=== PATIENT | female | born 1990 | race Caucasian/White ===

== ENCOUNTER → 2020-02-17 15:27 | Outpatient (BNVA) | payer OTHER, SELFPAY | PROVIDERS: PCP Internal Medicine; Referring Provider Internal Medicine; Visit Provider Surgery | DX: C50.919 Malignant neoplasm of unspecified site of unspecified female breast (principal) | CPT/HCPCS: 99212 ==

== ENCOUNTER → 2020-05-03 09:27 | Outpatient (BNVA) | payer OTHER, SELFPAY | PROVIDERS: PCP Internal Medicine; Visit Provider Advanced Practice Midwife ==

== ENCOUNTER → 2020-05-10 15:47 | Outpatient (BNV) | payer BC, OTHER, SELFPAY | PROVIDERS: PCP Internal Medicine; Visit Provider Internal Medicine Medical Oncology | DX: C50.912 Malignant neoplasm of unspecified site of left female breast (principal) | CPT/HCPCS: 99212; 99213; 99214 ==

== ENCOUNTER → 2020-08-17 14:46 | Outpatient (BNVA) | payer OTHER, SELFPAY | PROVIDERS: PCP Internal Medicine; Referring Provider Internal Medicine; Visit Provider Surgery | DX: C50.919 Malignant neoplasm of unspecified site of unspecified female breast (principal); Z79.810 Long term (current) use of selective estrogen receptor modulators (SERMs) | CPT/HCPCS: 99212 ==

== ENCOUNTER 2020-08-25 12:13 | Outpatient (REF) | payer OTHER, SELFPAY ==
--- NOTE | ~2020-08-25 | MM_ITS ---
EXAMINATION: MM SCREENING DIGITAL BREAST TOMOSYNTHESIS, RIGHT CLINICAL INFORMATION: Screening. Asymptomatic. Status post left mastectomy. COMPARISON: Mammography: August 25, 2019 and studies dating back to MRI of August 12, 2017 TECHNIQUE: Digital breast tomosynthesis is performed in both the craniocaudal and mediolateral oblique views along with computer-aided detection (CAD). Synthesized 2D images are generated from the tomosynthesis. FINDINGS: There are scattered areas of fibroglandular density (ACR BI-RADS breast composition Category b). About the deep inferior aspect of the right breast approximately 8 cm from the nipple is a region of parenchymal density likely representing superimposition of fibroglandular tissue and vessels but for which spot compression view is recommended. This appears to lie about the lateral aspect of the right breast. MM/MM tomosynthesis screening RT IMPRESSION: New-appearing density about the deep inferior aspect of the right breast likely representing superimposition of tissues. Recommend spot compression view. ASSESSMENT: BI-RADS 0: Incomplete - Need Additional Imaging Evaluation RECOMMENDATION: 1. Additional views of the right breast 2. Targeted ultrasound if warranted after review of the additional views. 3. Radiology department staff will contact the patient for additional imaging. This patient's information was entered into a reminder system with a target due date for their next mammogram.
== END 2020-08-25 12:14 | disposition home or self-care (01) ==
LOC: HO.MAMMO 12:13
PROVIDERS: PCP Internal Medicine; Visit Provider Surgery
DX: Z12.31 Encounter for screening mammogram for malignant neoplasm of breast (principal)
CPT/HCPCS: 77063; 77067

== ENCOUNTER 2020-08-31 12:21 | Outpatient (REF) | payer OTHER, SELFPAY ==
--- NOTE | ~2020-08-31 | MM_ITS ---
EXAMINATION: MM DIAGNOSTIC DIGITAL BREAST TOMOSYNTHESIS, RIGHT CLINICAL INFORMATION: Recall from screening for asymmetric density inferior right breast. Age 30. Prior left mastectomy for breast cancer, 08/23/2017. More recent right reduction mammoplasty 03/2020. COMPARISON: Mammography: 02/26/2020 (BI-RADS 0), 08/25/2019 (pre-reduction, BI-RADS 1) TECHNIQUE: Digital breast tomosynthesis is performed. 2D images are generated from the tomosynthesis. The following views are obtained: Right ML, spot right MLO, spot right ML x2. FINDINGS: There are scattered areas of fibroglandular density (ACR BI-RADS breast composition Category b). There are expected postoperative changes lower right breast corresponding to the reduction mammoplasty with mild scarring and borderline smooth skin thickening. The additional views show no underlying mass or suspicious architectural changes. No abnormal calcifications. Results are discussed with the patient at time of visit. MM/MM tomosynthesis added views R IMPRESSION: Postoperative changes right breast corresponding to the reduction mammoplasty. ASSESSMENT: BI-RADS 2: Benign RECOMMENDATION: Annual mammography screening. This patient's information was entered into a reminder system with a target due date for their next mammogram.
== END 2020-08-31 12:22 | disposition home or self-care (01) ==
LOC: HO.MAMMO 12:21
PROVIDERS: PCP Internal Medicine; Visit Provider Surgery
DX: R92.8 Other abnormal and inconclusive findings on diagnostic imaging of breast (principal)
CPT/HCPCS: 77061; 77065

== ENCOUNTER 2021-02-24 12:01 | Outpatient (REF) | payer OTHER, SELFPAY ==
[2021-02-24 13:35] LABS: Binax Internal Control QC Valid; Binax Now Covid-19 Ag Negative (Negative)
== END 2021-02-24 12:02 | disposition home or self-care (01) ==
LOC: HO.LAB 12:01
PROVIDERS: Visit Provider Internal Medicine
DX: Z20.822 Contact with and (suspected) exposure to COVID-19 (principal)
CPT/HCPCS: 36415; C9803

== ENCOUNTER 2021-04-14 09:14 | Outpatient (REF) | payer OTHER, SELFPAY ==
--- NOTE | ~2021-04-14 | MR_ITS ---
EXAMINATION: MR BREAST WITHOUT AND WITH CONTRAST, BILATERAL CLINICAL INFORMATION: Left mastectomy for breast cancer with free flap reconstruction. Family history of breast cancer including aunts and grandmother. Right breast reduction mammoplasty. COMPARISON: 10/29/2018. 08/12/2017. Mammography mammography 08/31/2020, 7021, and prior. TECHNIQUE: Imaging was performed with a dedicated breast coil. Prior to the administration of contrast, bilateral axial T1 and bilateral axial T2 weighted sequences were obtained. After the uneventful administration of?7.5 mL of Gadavist, dynamic contrast-enhanced VIBRANT series through the breasts in the axial plane were performed. Subtracted images were performed and reviewed. A delayed sagittal sequence through both breasts was acquired. Additionally, CAD post-processing, including maximum intensity projections, 3-D reconstructions and kinetic analysis, were performed an independent workstation and reviewed by the interpreting radiologist is a portion of this exam. FINDINGS: The right breast is comprised of scattered fibroglandular parenchyma. There is mild background physiologic enhancement. LEFT BREAST: The patient is status post left mastectomy for breast cancer. There has been a flap reconstruction. The flap shows normal vascular enhancement without skin thickening. No chest wall mass is identified. RIGHT BREAST: The patient is undergone right reduction mammoplasty. Susceptibility artifact is noted predominantly periareolar and along the inframammary fold. There is a 4 mm subcutaneous rim enhancement at the 9:00 periareolar margin 1 cm from the nipple (image 65/108). There is associated susceptibility artifact and fat attenuation and this most likely represents post reduction fat necrosis. 1 year follow-up is advised. Previous identified right nipple inversion appears to have resolved. No enhancement in the 6:00 position, site of suspected mammographic asymmetry. Architectural distortion consistent with reduction mammoplasty. No left axillary adenopathy. Postoperative changes are noted. No internal mammary chain adenopathy. No morphologically abnormal right axillary nodes. Limited views of the chest and abdomen are unremarkable. MR/MR breast BI wo/w con IMPRESSION: 1. Status post left mastectomy for breast cancer with normal-appearing flap reconstruction. 2. A 4 mm periareolar subcutaneous right breast nonmass enhancement at 9:00, likely fat necrosis. 3. Postsurgical changes from right breast reduction mammoplasty. 4. No MR correlate for resolved right breast asymmetry 6:00. ASSESSMENT: LEFT BREAST: BI-RADS 2, benign findings. RIGHT BREAST: BI-RADS 2, benign findings. RECOMMENDATIONS: A repeat bilateral breast MRI in 12 months time.
== END 2021-04-14 09:15 | disposition home or self-care (01) ==
LOC: HO.MRI 09:14
PROVIDERS: Visit Provider Internal Medicine Medical Oncology
DX: C50.919 Malignant neoplasm of unspecified site of unspecified female breast (principal)
CPT/HCPCS: 77049; A9585

== ENCOUNTER 2021-05-05 09:01 | Outpatient (REF) | payer OTHER, SELFPAY ==
[2021-05-05 16:52] LABS: CT PCR NOT DETECTED (Not Detect.); NG PCR NOT DETECTED (Not Detect.)
[2021-05-10 16:42] LABS: HPV mRNA E6/E7 rflx Not Detected (Not Detected)
== END 2021-05-05 09:02 | disposition home or self-care (01) ==
LOC: HO.LAB 09:01
PROVIDERS: PCP Internal Medicine; Visit Provider Advanced Practice Midwife
DX: Z01.411 Encounter for gynecological examination (general) (routine) with abnormal findings (principal); Z11.51 Encounter for screening for human papillomavirus (HPV); N88.9 Noninflammatory disorder of cervix uteri, unspecified; Z20.2 Contact with and (suspected) exposure to infections with a predominantly sexual mode of transmission
CPT/HCPCS: 87491; 87591; 87624; 88142

== ENCOUNTER 2021-05-29 08:40 | Outpatient (REF) | payer OTHER, SELFPAY | END 2021-05-29 08:41 | disposition home or self-care (01) | LOC: HO.LAB 08:40 | PROVIDERS: PCP Internal Medicine; Visit Provider Obstetrics & Gynecology | DX: N88.9 Noninflammatory disorder of cervix uteri, unspecified (principal); T78.49XA Other allergy, initial encounter; T49.0X5A Adverse effect of local antifungal, anti-infective and anti-inflammatory drugs, initial encounter; Z85.3 Personal history of malignant neoplasm of breast; Z88.0 Allergy status to penicillin; Z88.1 Allergy status to other antibiotic agents; Z91.040 Latex allergy status | CPT/HCPCS: 57454; 81025; 88305; 99212 ==

== ENCOUNTER 2021-06-05 07:21 | Outpatient (REF) | payer OTHER, SELFPAY ==
[2021-06-05 11:45] LABS: Cholesterol 315 mg/dL; HDL Cholesterol 33 mg/dL; Triglycerides 857 mg/dL
[2021-06-05 11:55] LABS: TSH reflex Free T4 4.84 uIU/mL (0.32-4.0); Vitamin D 25-OH Total 10.6 ng/mL (>30)
[2021-06-05 13:10] LABS: Free T4 (Free Thyroxine) 0.84 ng/dL (0.71-1.85)
== END 2021-06-05 07:22 | disposition home or self-care (01) ==
LOC: HO.HMGCLDS 07:21
PROVIDERS: Visit Provider Internal Medicine
DX: Z00.01 Encounter for general adult medical examination with abnormal findings (principal); Z83.49 Family history of other endocrine, nutritional and metabolic diseases
CPT/HCPCS: 36415; 80061; 82306; 84439; 84443

== ENCOUNTER 2021-06-07 12:54 | Outpatient (REF) | payer OTHER, SELFPAY ==
[2021-06-07 17:28] LABS: CT PCR NOT DETECTED (Not Detect.); NG PCR NOT DETECTED (Not Detect.)
[2021-06-08 11:09] LABS: BV Int Neg Control Negative (Negative); BV Int Pos Control Positive (Positive)
== END 2021-06-07 12:55 | disposition home or self-care (01) ==
LOC: HO.LAB 12:54
PROVIDERS: PCP Internal Medicine; Visit Provider Advanced Practice Midwife
DX: Z11.3 Encounter for screening for infections with a predominantly sexual mode of transmission (principal); Z20.2 Contact with and (suspected) exposure to infections with a predominantly sexual mode of transmission; N88.9 Noninflammatory disorder of cervix uteri, unspecified; B37.3 Candidiasis of vulva and vagina; Z85.3 Personal history of malignant neoplasm of breast
CPT/HCPCS: 87480; 87491; 87510; 87591; 87660; 99212

== ENCOUNTER → 2021-06-13 11:49 | Outpatient (BNVA) | payer OTHER, SELFPAY | PROVIDERS: PCP Internal Medicine; Visit Provider Obstetrics & Gynecology | DX: Z13.89 Encounter for screening for other disorder (principal) ==

== ENCOUNTER → 2021-06-20 14:01 | Outpatient (BNVA) | payer OTHER, SELFPAY | PROVIDERS: PCP Internal Medicine; Visit Provider Advanced Practice Midwife | DX: Z30.430 Encounter for insertion of intrauterine contraceptive device (principal); Z32.02 Encounter for pregnancy test, result negative | CPT/HCPCS: 58300; 81025; J7300 ==

== ENCOUNTER 2021-07-19 15:54 | Emergency (ER) | payer OTHER, SELFPAY ==
--- NOTE | 2021-07-19 | ECG_ITS ---
Test Reason : DIZZY S/P MECH FALL Blood Pressure : / mmHG Vent. Rate : 077 BPM Atrial Rate : 077 BPM P-R Int : 156 ms QRS Dur : 080 ms QT Int : 410 ms P-R-T Axes : 046 008 043 degrees QTc Int : 463 ms Normal sinus rhythm Low voltage QRS Borderline ECG No previous ECGs available Referred By: Generic ED Physician Electronically Signed By:JONATHAN MCCABE MD
[2021-07-19 15:56] VITALS: BP 142/102; PULSE 93; RESP 18; TEMP 37.1; O2SAT 99; BMI 29.0
[2021-07-19 18:34] VITALS: BP 132/92; PULSE 66; RESP 18; TEMP 36.7; O2SAT 99
--- NOTE | 2021-07-19 18:44 | ED_ITS ---
HPI - Wound/Laceration General Chief Complaint: Wound/Laceration Stated Complaint: hit head on bed laceration Time Seen by Provider: 07/19/21 16:24 Source: patient Mode of arrival: ambulatory Limitations: no limitations History of Present Illness HPI narrative: 31-year-old female with a history of breast cancer status post mastectomy on tamoxifen here with reports of head injury which occurred several hours prior to arrival. Patient tells me that she was wrestling with her child when she rolled over striking her head on a metal table. She denies loss of consciousness. She reports some mild headache and some slight dizziness but overall feels well. No anticoagulation use. She denies nausea, vomiting, photophobia, neck pain. Related Data Previous Rx's Medication Instructions Recorded cholecalciferol (vitamin D3) 1,250 1,250 mcg PO 2XW 90 Days #26 cap 06/20/21 mcg (50,000 unit) capsule tamoxifen 20 mg tablet 20 mg PO DAILY #90 tab 06/20/21 fenofibrate 160 mg tablet 160 mg PO DAILY #90 tab 06/21/21 Allergies Allergy/AdvReac Type Severity Reaction Status Date / Time latex Allergy Intermediate rash Verified 06/20/21 14:18 silver Allergy Mild rash Verified 06/20/21 14:18 [From TEGADERM AG MESH] amoxicillin Allergy Unknown hives Verified 06/20/21 14:18 Penicillins [PENICILLINS] AdvReac Intermediate VOMITTING/H Verified 06/20/21 14:18 KALPESH bandage tape Allergy Mild rash Uncoded 06/07/21 13:16 Review of Systems Review of Systems: Yes all other systems are reviewed and are negative Constitutional: Constitutional: Reports no additional constitutional complaints, Denies body ache(s), Denies chills, Denies fever(s), Reports headache(s) and Denies weakness Eyes: Eyes: Reports no additional eye complaints and Denies change in vision ENT: Reports system reviewed and no additional complaints, except as documented, Reports dizziness, Reports headache(s), Denies nasal congestion, Denies nasal discharge and Denies neck pain Cardiovascular: Cardiovascular: Reports no additional cardiovascular complaints, Denies chest pain, Denies leg edema and Denies dyspnea Respiratory: Respiratory: Reports no additional respiratory complaints, Denies cough and Denies dyspnea Gastrointestinal: Gastrointestinal: Reports no additional gastrointestinal complaints, Denies abdominal pain, Denies diarrhea, Denies nausea and Denies vomiting Genitourinary: Genitourinary: Reports no additional female genitourinary complaints and Denies urinary incontinence Musculoskeletal: Musculoskeletal: Reports no additional musculoskeletal complaints, Denies back pain, Denies arthralgias, Denies joint swelling, Denies neck pain, Denies numbness and Denies tingling Integumentary/Breasts: Skin/Breast: Reports system reviewed and no additional complaints, except as docu and Denies rash Neurologic: Reports system reviewed and no additional complaints, except as documented, Denies Abnormal speech present, Reports dizziness, Reports headache(s), Denies numbness, Denies tingling and Denies weakness PMFSH Past Medical History Attestation statement: The following information was validated with the patient. Source: old records reviewed and nursing notes reviewed Medical History Breast cancer Cervix abnormality Hx of breast cancer Hypertriglyceridemia Vitamin D deficiency Surgical History History of abdominoplasty History of breast reconstruction History of left total mastectomy Family History Family History Mother Hypertension Father Hypertension Mother Cancer of kidney Maternal Aunt Breast cancer Paternal Aunt Breast cancer Social History Social History Household Members: Family and Children Housing: House Are you a primary home care physical therapist to a significant other at home: No Do you presently have visiting nurse or other home services: No Alcohol intake: never Patient Tobacco Use Status: Never used Tobacco e-Cigarette/Vaping Use: Never Used Advance Directives: No Advance Directives Information Provided: No service: No Current occupational status: employed Cognitive needs: No Hearing needs: No Vision needs: No Physical Exam Vital Signs: Vital Signs: Last Vital Signs Temp 98.0 F 07/19/21 18:34 Pulse 66 07/19/21 18:34 Resp 18 07/19/21 18:34 BP 132/92 H 07/19/21 18:34 Pulse Ox 99 07/19/21 18:34 BMI result Body Mass Index 29.0 Const: General: cooperative, healthy appearing, comfortable and no acute distress Orientation/consciousness: patient oriented x3 Limitations: no limitations HEENT: Head: Yes normal to inspection, No Vasquez's sign and No raccoon eyes Head images: 1. small abrasion 0.5cm with no active bleeding. no bogginess or hematoma Ears: hearing grossly normal bilaterally and TM's normal bilaterally General nose exam: Normal external nose present Face and sinus: Yes normal facial exam Mouth: Normal oral and palatal mucosa present Throat: Yes posterior oropharynx normal, Yes tonsils normal and Yes uvula midline Eyes: General: appearance normal, both eyes and all related structures Pupils: Equal, round and reactive pupils present Neck: Neck: Yes normal visual inspection, Yes full ROM, Yes no lymphadenopathy and Yes no meningeal signs Chest: Chest palpation & inspection: normal inspection of the chest Resp: Effort & Inspection: normal respiratory effort Auscultation: clear to auscultation bilaterally Cardio: Rate: regular rate Rhythm: regular rhythm Peripheral pulses: Peripheral pulses 2+ throughout GI: Inspection: Yes normal to inspection Palpation (GI): Soft to palpation and nontender Auscultation: normal bowel sounds Back/Spine/Pelvis: Thoracic/Lumbar Spine: thoracic and lumbar spine normal to inspection Skin: General skin exam: no rashes or lesions noted Neuro: General: patient oriented x3, moves all extremities, no meningeal signs, no focal motor deficits and normal sensation to monofilament Cranial nerves: Yes CN's II-XII intact bilaterally, Yes Equal, round and reactive pupils present, Yes Bilaterally intact EOM present, Yes Nystagmus not present, Yes Normal facial strength present and Yes Midline tongue present Cognition (Neuro): normal cognition Speech: No Abnormal speech present Gait exam (Neuro): Normal gait present Motor exam (neuro): 5/5 motor strength present throughout Sensory Exam: Normal double simultaneous stimulation for sensation Coordination: [id number]-[id number] test normal, [id number] test normal and tandem gait normal Extrem: General: Yes normal to inspection, Yes no pedal edema and Yes no calf tenderness Course Course Course Narrative: 31-year-old female who with a history of breast cancer currently on tamoxifen here with reports of head strike several hours ago with some mild headache and dizziness after the injury. There was no loss of consciousness. On exam she has a normal exam neurological exam. She has a small abrasion to the posterior head with no active bleeding. No bogginess or hematoma. No cervical tenderness, step-offs or deformities. Her tetanus is updated. Will update tetanus. We discussed imaging versus observation at home. Low concern for intracranial hemorrhage. Likely concussion which is mild based on symptoms. Patient is tolerating p.o. with no difficulty. This was discussed with family. She is comfortable going home with an observation.. She will return for any worrisome signs and symptoms such as severe headache, multiple episodes of vomiting, change in behavior. Reviewed worrisome signs and symptoms of when to return to the emergency department. Comfortable discharge home. MDM - Wound/Laceration Medical Records Attestation: I reviewed the patient's medical records. Lab Data Attestation: I reviewed the patient's lab results. Discharge Plan Discharge Clinical Impression: Head injury Patient Disposition: Home, Self-Care Instructions: Head Injury (ED) Additional Instructions: We discussed imaging versus observation at home. At this time as you are having mild symptoms we are considering you low risk for traumatic brain injury. However if you develop any severe headache, vomiting, lethargy please return Motrin or Tylenol for pain as needed Brain rest Prescriptions: No Action cholecalciferol (vitamin D3) 1,250 mcg (50,000 unit) capsule 1,250 mcg PO 2XW 90 Days Qty: 26 0RF fenofibrate 160 mg tablet 160 mg PO DAILY Qty: 90 1RF tamoxifen 20 mg tablet 20 mg PO DAILY Qty: 90 14RF Referrals: Kimberly Lagos MD [Primary Care Provider] - 1 week (any persistent symptoms ) Stand Alone Forms: Work/School Release Interventions: ED Discharge Assessment Last Done: 07/19/21 19:17 Discharge Date/Time: 07/19/21 19:10
[2021-07-19] MEDS: Diphth,Pertus(ACell),Tet Adult 0.5 ML SYRINGE IM (19:13)
== END 2021-07-19 19:10 | disposition home or self-care (01) ==
LOC: HO.ED 18:48
PROVIDERS: Emergency Provider Emergency Medicine; PCP Internal Medicine
DX: S00.01XA Abrasion of scalp, initial encounter (principal); C50.919 Malignant neoplasm of unspecified site of unspecified female breast; Z79.810 Long term (current) use of selective estrogen receptor modulators (SERMs); W22.09XA Striking against other stationary object, initial encounter; Y93.83 Activity, rough housing and horseplay; Y92.9 Unspecified place or not applicable; Y99.9 Unspecified external cause status
CPT/HCPCS: 90471; 90715; 93005; 99282; 99284

== ENCOUNTER → 2021-07-20 15:00 | Outpatient (BNVA) | payer OTHER, SELFPAY | PROVIDERS: PCP Internal Medicine; Visit Provider Advanced Practice Midwife | DX: Z30.431 Encounter for routine checking of intrauterine contraceptive device (principal); N89.8 Other specified noninflammatory disorders of vagina | CPT/HCPCS: 99212 ==

== ENCOUNTER 2021-08-23 08:08 | Outpatient (REF) | payer OTHER, SELFPAY ==
[2021-08-23 11:55] LABS: Alanine Aminotransferase 16 U/L (0-31); Aspartate Amino Transferase 17 U/L (5-31); Cholesterol 167 mg/dL; HDL Cholesterol 45 mg/dL; LDL Cholesterol Calculated 100 mg/dl; Triglycerides 113 mg/dL
[2021-08-23 12:24] LABS: Free T4 (Free Thyroxine) 0.83 ng/dL (0.71-1.85); Thyroid Stimulating Hormone 8.42 uIU/mL (0.32-4.0); Vitamin D 25-OH Total 100.5 ng/mL (>30)
[2021-08-25 06:56] LABS: LDL Cholesterol Direct 108 mg/dL (<100)
== END 2021-08-23 08:09 | disposition home or self-care (01) ==
LOC: HO.HMGCLDS 08:08
PROVIDERS: Visit Provider Internal Medicine
DX: E55.9 Vitamin D deficiency, unspecified (principal); E78.1 Pure hyperglyceridemia; E03.9 Hypothyroidism, unspecified
CPT/HCPCS: 36415; 80061; 82306; 83721; 84439; 84443; 84450; 84460

== ENCOUNTER 2021-08-28 14:01 | Outpatient (REF) | payer OTHER, SELFPAY ==
--- NOTE | ~2021-08-28 | MM_ITS ---
EXAMINATION: MM SCREENING DIGITAL BREAST TOMOSYNTHESIS, RIGHT CLINICAL INFORMATION: Age 31. Left mastectomy 08/23/2017. Right reduction mammoplasty March,. Screening. Due to for yearly. COMPARISON: Mammography: 08/31/2020, 08/25/2020, 08/25/2019, 08/18/2018; MR breasts 04/14/2021. TECHNIQUE: Digital breast tomosynthesis is performed in both the craniocaudal and mediolateral oblique views along with computer-aided detection (CAD). Synthesized 2D images are generated from the tomosynthesis. FINDINGS: There are scattered areas of fibroglandular density (ACR BI-RADS breast composition Category b). There are no significant masses, abnormal calcifications, or other abnormalities. No developing density. No interval architectural abnormality. Minor scarring consistent with the reduction mammoplasty. No significant changes. MM/MM tomosynthesis screening RT IMPRESSION: No mammographic evidence of malignancy. ASSESSMENT: BI-RADS 2: Benign RECOMMENDATION: Routine annual mammography screening. This patient's information was entered into a reminder system with a target due date for their next mammogram.
== END 2021-08-28 14:02 | disposition home or self-care (01) ==
LOC: HO.MAMMO 14:01
PROVIDERS: PCP Internal Medicine; Visit Provider Surgery
DX: Z12.31 Encounter for screening mammogram for malignant neoplasm of breast (principal); Z90.12 Acquired absence of left breast and nipple
CPT/HCPCS: 77063; 77067

== ENCOUNTER → 2021-10-16 09:30 | Outpatient (BNVA) | payer OTHER, SELFPAY | PROVIDERS: PCP Internal Medicine; Visit Provider Surgery | DX: Z85.3 Personal history of malignant neoplasm of breast (principal) | CPT/HCPCS: 99212 ==

== ENCOUNTER 2022-04-23 07:20 | Outpatient (REF) | payer OTHER, SELFPAY ==
[2022-04-23 11:43] LABS: MANUAL DIFF FLAG NO
[2022-04-23 11:58] LABS: Basophils Absolute Auto 0.1 X10*3/uL (0.0-0.2); Basophils Percent Auto 0.7 % (0-2); Eosinophils Absolute Auto 0.3 X10*3/uL (0.0-0.4); Eosinophils Percent Auto 2.8 % (0-4); Hematocrit 39.2 % (37.0-47.0); Hemoglobin 12.6 g/dl (12.0-16.0); Imm Gran Abs Auto 0.04 X10*3/uL (0.00-0.03); Imm Gran Pct Auto 0.4 % (0.0-0.4); Lymphocytes Percent Auto 42.3 % (20-40); Mean Corpuscular HGB Conc 32.1 g/dl (31.0-35.0); Mean Corpuscular Hemoglobin 27.3 pg (27.0-33.0); Mean Corpuscular Volume 84.8 fL (80.0-98.0); Mean Platelet Volume 10.2 fL (9.4-12.3); Monocytes Absolute Auto 0.8 X10*3/uL (0.1-1.2); Monocytes Percent Auto 8.5 % (2-11); Neutrophils Absolute Auto 4.3 x10*3/uL (2.0-8.3); Neutrophils Percent Auto 45.3 % (45-73); Platelet Count 290 X10*3/uL (160-400); Red Blood Count 4.62 X10*6/uL (4.20-5.50); Red Cell Distribution Width 12.4 % (11.0-16.0); White Blood Count 9.6 X10*3/uL (4.8-10.8)
[2022-04-23 12:23] LABS: Vitamin D 25-OH Total 21.7 ng/mL (>30)
[2022-04-23 12:26] LABS: Alanine Aminotransferase 14 U/L (0-31); Albumin Level 4.1 g/dL (3.5-5.0); Alkaline Phosphatase 72 U/L (39-117); Anion Gap 12 (12-20); Aspartate Amino Transferase 20 U/L (5-31); Bilirubin Total 0.3 mg/dL (0.0-1.0); Blood Urea Nitrogen 11 mg/dL (9-16); Calcium 8.7 mg/dL (8.4-10.2); Carbon Dioxide 25 mmol/L (22-29); Chloride 109 mmol/L (96-108); Cholesterol 287 mg/dL; Estimated Glomerular Filt Rate > 60; Free T4 (Free Thyroxine) 0.82 ng/dL (0.71-1.85); Glucose Random 91 mg/dL (60-115); HDL Cholesterol 32 mg/dL; Potassium 4.2 mmol/L (3.3-5.1); Sodium 142 mmol/L (135-145); Total Protein 7.2 g/dL (6.5-8.0); Triglycerides 819 mg/dL
[2022-04-24 21:34] LABS: Thyroid Peroxidase Antibodies 83 IU/mL (<9)
[2022-04-25 09:04] LABS: CA 27.29 26 U/mL (<38)
== END 2022-04-23 07:21 | disposition home or self-care (01) ==
LOC: HO.HMGCLDS 07:20
PROVIDERS: Absent Provider Internal Medicine Medical Oncology; PCP Internal Medicine; Visit Provider Internal Medicine
DX: C50.919 Malignant neoplasm of unspecified site of unspecified female breast (principal); E78.1 Pure hyperglyceridemia; E03.9 Hypothyroidism, unspecified; R79.89 Other specified abnormal findings of blood chemistry
CPT/HCPCS: 36415; 80053; 80061; 82306; 84439; 84443; 85025; 86300; 86376

== ENCOUNTER 2022-05-14 08:54 | Outpatient (REF) | payer OTHER, SELFPAY ==
[2022-05-14 14:04] LABS: CT PCR NOT DETECTED (Not Detect.); NG PCR NOT DETECTED (Not Detect.)
[2022-05-15 11:16] LABS: BV Int Neg Control Negative (Negative); BV Int Pos Control Positive (Positive)
== END 2022-05-14 08:55 | disposition home or self-care (01) ==
LOC: HO.LNP 08:54
PROVIDERS: PCP Internal Medicine; Visit Provider Advanced Practice Midwife
DX: Z01.419 Encounter for gynecological examination (general) (routine) without abnormal findings (principal); R14.0 Abdominal distension (gaseous); N92.6 Irregular menstruation, unspecified; N90.89 Other specified noninflammatory disorders of vulva and perineum; N85.2 Hypertrophy of uterus; Z97.5 Presence of (intrauterine) contraceptive device; Z20.2 Contact with and (suspected) exposure to infections with a predominantly sexual mode of transmission
CPT/HCPCS: 0353U; 87480; 87510; 87660

== ENCOUNTER 2022-05-17 12:53 | Outpatient (REF) | payer OTHER, SELFPAY ==
--- NOTE | ~2022-05-17 | US_ITS ---
EXAMINATION: US PELVIS CLINICAL INFORMATION: Enlarged uterus with irregular menstruation. LMP 05/13/2022. COMPARISON: CT abdomen/pelvis 09/06/2017. TECHNIQUE: Ultrasound of the pelvis is performed using both transabdominal and transvaginal transducers along with Doppler. Transvaginal imaging is performed due to inadequate visualization transabdominally. FINDINGS: The uterus is anteverted and measures 8.6 x 4.5 x 6 cm. No uterine lesion. IUD in place within the endometrial canal. No focal endometrial lesions. The right ovary measures 3.5 x 3.3 x 4 cm, 24.4 mL. The left ovary measures 3.5 x 1.7 x 3.7 cm, 12 mL. There is a 2.9 x 3.3 x 3.4 cm cyst in the right ovary, almost certainly benign for which no imaging follow-up is recommended. There is a 1.2 x 1.6 x 1.2 cm dominant follicles in the left ovary, for which no imaging follow-up is recommended. There is preserved flow to both ovaries on color Doppler at the moment of this examination. Small amount of free fluid around both ovaries. US/US pelvic and transvaginal IMPRESSION: 1. Asymmetric enlargement of the right ovary, likely explained by the presence of a dominant 3.4 cm simple appearing cyst. The surrounding stroma appears within normal limits. If there is pain, a short-term follow-up ultrasound is recommended to reassess as torsion/detorsion cannot be entirely excluded based upon this imaging. 2. Small amount of free fluid around both ovaries which is likely physiologic. 3. IUD in place within the endometrial canal.
== END 2022-05-17 12:54 | disposition home or self-care (01) ==
LOC: HO.HMGCX 12:53
PROVIDERS: PCP Internal Medicine; Visit Provider Advanced Practice Midwife
DX: R14.0 Abdominal distension (gaseous) (principal); N92.6 Irregular menstruation, unspecified; N85.2 Hypertrophy of uterus
CPT/HCPCS: 76830; 76856

== ENCOUNTER 2022-05-24 16:40 | Outpatient (REF) | payer OTHER, SELFPAY ==
--- NOTE | ~2022-05-24 | MR_ITS ---
EXAMINATION: MR BREAST WITHOUT AND WITH CONTRAST, BILATERAL CLINICAL INFORMATION: Personal history of left breast carcinoma, status post mastectomy with free flap reconstruction. History of right breast reduction in 2018. COMPARISON: Bilateral breast MRI 04/14/2021; right screening mammogram 08/28/21 TECHNIQUE: Imaging was performed with a dedicated breast coil. Prior to the administration of contrast, bilateral axial T1 and bilateral axial T2 weighted sequences were obtained. After the uneventful administration of?7.5 mL of Gadavist, dynamic contrast-enhanced VIBRANT series through the breasts in the axial plane were performed. Subtracted images were performed and reviewed. A delayed sagittal sequence through both breasts was acquired. Additionally, CAD post-processing, including maximum intensity projections, 3-D reconstructions and kinetic analysis, were performed an independent workstation and reviewed by the interpreting radiologist is a portion of this exam. FINDINGS: The patient's right breast scattered fibroglandular tissue demonstrates no significant background enhancement. There are postmastectomy changes on the left with a free flap reconstruction. LEFT BREAST: There is a 0.3 cm oval, T2 hyperintense focus in the 2:00 position, middle depth (subtracted sequence image 48 of 126) within the reconstructed breast. Finding is most suggestive of a small area of probable fat necrosis. There is no breast fibroglandular tissue present. No skin thickening or skin enhancement is seen. RIGHT BREAST: No suspicious masslike or non-masslike enhancement. No abnormal skin thickening or nipple retraction. No abnormal architectural distortion. Review of the T2 weighted images demonstrates no fibrocystic changes or dilated ducts. Review of kinetic images reveals no additional findings. There is no suspicious internal mammary chain or axillary adenopathy. Limited views of the chest and abdomen are unremarkable. MR/MR breast BI wo/w con IMPRESSION: 0.3 cm enhancing focus in the reconstruction flap on the left as above. ASSESSMENT: LEFT BREAST: BI-RADS 3, probably benign. RIGHT BREAST: BI-RADS 1-Negative RECOMMENDATIONS: Short interval follow-up MRI in 6 months to assess enhancing focus in left reconstructed free flap for stability.
== END 2022-05-24 16:41 | disposition home or self-care (01) ==
LOC: HO.MRI 16:40
PROVIDERS: PCP Internal Medicine; Visit Provider Internal Medicine Medical Oncology
DX: Z85.3 Personal history of malignant neoplasm of breast (principal)
CPT/HCPCS: 77049; A9585

== ENCOUNTER → 2022-06-12 09:44 | Outpatient (BNVA) | payer OTHER, SELFPAY | PROVIDERS: PCP Internal Medicine; Visit Provider Advanced Practice Midwife | DX: N92.6 Irregular menstruation, unspecified (principal); N83.201 Unspecified ovarian cyst, right side; N89.8 Other specified noninflammatory disorders of vagina; Z71.2 Person consulting for explanation of examination or test findings; Z79.810 Long term (current) use of selective estrogen receptor modulators (SERMs) | CPT/HCPCS: 99212 ==

== ENCOUNTER → 2022-07-18 09:05 | Outpatient (BNVA) | payer OTHER, SELFPAY | PROVIDERS: PCP Internal Medicine; Visit Provider Advanced Practice Midwife | DX: L73.1 Pseudofolliculitis barbae (principal) | CPT/HCPCS: 99212 ==

== ENCOUNTER 2022-08-24 13:15 | Outpatient (REF) | payer OTHER, SELFPAY ==
--- NOTE | ~2022-08-24 | US_ITS ---
EXAMINATION: US PELVIS COMPLETE CLINICAL INFORMATION: Ovarian cyst COMPARISON: Pelvic ultrasound 05/17/2022 TECHNIQUE: Transabdominal and transvaginal imaging was performed. FINDINGS: The uterus is of normal size and echogenicity measuring 9.4 x 5.0 x 7.3 cm. Uterus is retroverted in position. [address] The endometrium measures 3 mm in thickness. The cervical is remarkable for nabothian cysts. Both ovaries are of normal size and echogenicity. The right measures 2.1 x 1.6 x 2.3 cm for a volume of 3.9 mL. The left measures 2.2 x 1.6 x 1.6 cm for a volume of 3.1 mL. Borderline prominent adnexal vessels. There is no pelvic free fluid. US/US pelvic and transvaginal IMPRESSION: 1. Borderline prominent adnexal vessels which can be seen in the setting of pelvic congestion syndrome in the appropriate clinical setting. 2. Intrauterine device in place. 3. Unremarkable sonographic appearance of the ovaries.
== END 2022-08-24 13:16 | disposition home or self-care (01) ==
LOC: HO.US 13:15
PROVIDERS: PCP Internal Medicine; Visit Provider Advanced Practice Midwife
DX: N83.201 Unspecified ovarian cyst, right side (principal)
CPT/HCPCS: 76830; 76856

== ENCOUNTER 2022-09-05 13:29 | Outpatient (REF) | payer OTHER, SELFPAY ==
--- NOTE | ~2022-09-05 | MM_ITS ---
EXAMINATION: MM SCREENING DIGITAL BREAST TOMOSYNTHESIS, BILATERAL CLINICAL INFORMATION: Screening. Asymptomatic. Left mastectomy 08/23/2017. Right reduction mammoplasty March,. COMPARISON: Mammography: 08/28/2021, 08/31/2020, 08/25/2020; 09/05/2018 MRI breast. TECHNIQUE: Digital right breast tomosynthesis is performed in both the craniocaudal and mediolateral oblique views along with computer-aided detection (CAD). Synthesized 2D images are generated from the tomosynthesis. FINDINGS: There are scattered areas of fibroglandular density (ACR BI-RADS breast composition Category b). Stable right-sided reduction mammoplasty scarring. No suspicious masses, suspicious grouped calcifications, or areas of architectural distortion present to suggest malignancy. The parenchymal pattern appears unchanged. MM/MM tomosynthesis screening RT IMPRESSION: No mammographic evidence of malignancy. ASSESSMENT: BI-RADS BI-RADS 2 - Benign Findings RECOMMENDATION: Routine annual mammography screening. 1 year F/U This examination should not preclude the clinical evaluation of a suspicious palpable abnormality. This patient's information was entered into a reminder system with a target due date for their next mammogram.
== END 2022-09-05 13:30 | disposition home or self-care (01) ==
LOC: HO.MAMMO 13:29
PROVIDERS: PCP Internal Medicine; Visit Provider Surgery
DX: Z12.31 Encounter for screening mammogram for malignant neoplasm of breast (principal)
CPT/HCPCS: 77063; 77067; 99212

== ENCOUNTER → 2022-09-05 13:45 | Outpatient (BNV) | payer OTHER, SELFPAY | PROVIDERS: PCP Internal Medicine; Visit Provider Radiology Diagnostic Radiology | DX: Z12.31 Encounter for screening mammogram for malignant neoplasm of breast (principal); Z90.12 Acquired absence of left breast and nipple | CPT/HCPCS: 77063; 77067 ==

== ENCOUNTER 2022-09-05 14:47 | Outpatient (AMB) | payer OTHER, SELFPAY ==
[2022-09-05 15:02] VITALS: BP 120/84; BMI 25.7
--- NOTE | 2022-09-05 15:02 | A.OFFVIS_ITS ---
Intake Vital Signs 09/05/22 15:02 Height 5 ft 6 in Weight 159 lb BMI 25.7 BP 120/84 Intake Visit Reasons: Ultra sound follow up Intake Note: The patient agreed to use of a director medical safety during this encounter. Scribed for NATHANIEL Jackson by Neha Cifuentes director medical safety, on 09/05/2022 at 3:20 pm EST. System Operator Required: No Allergies latex Allergy (Intermediate, Verified 09/05/22 15:02) rash silver [From TEGADERM AG MESH] Allergy (Mild, Verified 09/05/22 15:02) rash amoxicillin Allergy (Unknown, Verified 09/05/22 15:02) hives Penicillins [PENICILLINS] Adverse Reaction (Intermediate, Verified 09/05/22 15:02) VOMITTING/HIVES bandage tape Allergy (Mild, Uncoded 09/05/22 15:02) rash Is last menstrual period known: Yes Last menstrual period: 08/14/22 Post menopausal: No HPI HPI Comments History of Present Illness Details She is here to discuss US results regarding ovarian cyst. States she does not feel pelvic pain at this time. Reports she feels occasional pelvic cramping 10 days before menses. Has the ParaGard IUD. States she uses Tylenol and heating pads for pain management. Taking Tamoxifen due to history of breast cancer. [facility] Medical History Breast cancer Cervix abnormality Cyst of right ovary Hx of breast cancer Hypertriglyceridemia Ingrown hair Long-term current use of tamoxifen Vitamin D deficiency Surgical History History of abdominoplasty History of breast reconstruction History of left total mastectomy Family History Mother Hypertension Father Hypertension Mother Cancer of kidney Maternal Aunt Breast cancer Paternal Aunt Breast cancer Social History Household Members: Family and Children Housing: House Are you a primary manager wound care to a significant other at home: No Do you presently have visiting nurse or other home services: No Alcohol intake: never Patient Tobacco Use Status: Never used Tobacco e-Cigarette/Vaping Use: Never Used service: No Current occupational status: employed Cognitive needs: No Hearing needs: No Vision needs: Yes Female Reproductive History Menstrual Age of Menarche: 10 Date of last menstrual period: 08/14/22 Date of last pap smear: 05/08/21 (negative) Date of Mammogram: 09/05/22 Physical Exam Vital Signs: Last Vital Signs BP 120/84 09/05/22 15:02 BMI result Body Mass Index 25.7 Const General: cooperative, healthy appearing, comfortable, no acute distress, well developed, alert and awake Results Reviewed Results Reviewed: EXAMINATION: US PELVIS COMPLETE CLINICAL INFORMATION: Ovarian cyst COMPARISON: Pelvic ultrasound 05/17/2022 TECHNIQUE: Transabdominal and transvaginal imaging was performed. FINDINGS: The uterus is of normal size and echogenicity measuring 9.4 x 5.0 x 7.3 cm. Uterus is retroverted in position. [address] The endometrium measures 3 mm in thickness. The cervical is remarkable for nabothian cysts. Both ovaries are of normal size and echogenicity. The right measures 2.1 x 1.6 x 2.3 cm for a volume of 3.9 mL. The left measures 2.2 x 1.6 x 1.6 cm for a volume of 3.1 mL. Borderline prominent adnexal vessels. There is no pelvic free fluid. US/US pelvic and transvaginal IMPRESSION: 1.? Borderline prominent adnexal vessels which can be seen in the setting of pelvic congestion syndrome in the appropriate clinical setting. 2.? Intrauterine device in place. 3.? Unremarkable sonographic appearance of the ovaries. ? Assessment & Plan Assessment & Plan (1) Encounter to discuss test results: Code(s): Z71.2 - Person consulting for explanation of examination or test findings Plan: Discussed: US findings of: 1.? Borderline prominent adnexal vessels which can be seen in the setting of pelvic congestion syndrome in the appropriate clinical setting. 2.? Intrauterine device in place. 3.? Unremarkable sonographic appearance of the ovaries. Treatment with Interventional Radiology at [facility] if indicated, pt. does not desires any treatment as she is managing her menstrual cycle pain as noted. Monitor menses, report any abnormal bleeding patterns: <21days apart or any heavy prolonged bleeding. All of her questions and concerns were addressed to the best of my ability and shared decision making. She is agreeable to plan of care. Coding Level of Care Code Est Pt Level 3 (05064) Diagnoses Encounter to discuss test results Z71.2
== END 2022-09-05 16:16 | disposition home or self-care (01) ==
LOC: HO.HWS 14:47
PROVIDERS: PCP Internal Medicine; Visit Provider Advanced Practice Midwife
DX: Z71.2 Person consulting for explanation of examination or test findings (principal)
CPT/HCPCS: 99213

== ENCOUNTER 2022-10-15 09:48 | Outpatient (AMB) | payer OTHER, SELFPAY ==
[2022-10-15 09:50] VITALS: BP 129/79; PULSE 74; BMI 25.8
--- NOTE | 2022-10-15 09:50 | A.OFFVIS_ITS ---
Intake Vital Signs 10/15/22 09:50 Height 5 ft 6 in Weight 160 lb BMI 25.8 BP 129/79 Blood Pressure Location Rt brachial Position Sitting Pulse 74 Intake Visit Reasons: yearly breast examination Intake Note: This patient presents for a yearly breast examination assessment. Patient c/o; reports no changes or breast complaints at this time. Naval Gunfire Spotter Required: No Accompanied by: Self / Same As Patient Allergies latex Allergy (Intermediate, Verified 10/15/22 09:50) rash silver [From TEGADERM AG MESH] Allergy (Mild, Verified 10/15/22 09:50) rash amoxicillin Allergy (Unknown, Verified 10/15/22 09:50) hives Penicillins [PENICILLINS] Adverse Reaction (Intermediate, Verified 10/15/22 09:50) VOMITTING/HIVES bandage tape Allergy (Mild, Uncoded 10/15/22 09:50) rash Medication List - Last Reconciled 10/15/22 by Simon Braun MD acetaminophen (Tylenol Extra Strength) 1,000 mg PO Q6H PRN cholecalciferol (vitamin D3) 50 mcg PO DAILY copper (ParaGard T 380A) 380 device intrauterine DAILY fenofibrate 160 mg PO DAILY tamoxifen 20 mg PO DAILY HPI yearly breast examination HPI Details She is here for a follow-up for her history of breast cancer.? 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 She had 1 lymph node with micrometastasis at that time.? She also had undergone breast reconstruction for that.? She had completed adjuvant treatment with Cytoxan, Adriamycin and Taxol. She continues do well.? She had her mammogram last August, which did not reveal any evidence of any recurrence or new breast cancer. She denies any palpable breast masses or nipple or skin changes.? She is still on antiestrogen treatment with tamoxifen. She denies any health concerns at this time. [facility] Medical History Breast cancer Cervix abnormality Cyst of right ovary Hx of breast cancer Hypertriglyceridemia Ingrown hair Long-term current use of tamoxifen Vitamin D deficiency Surgical History History of abdominoplasty History of breast reconstruction History of left total mastectomy Family History Mother Hypertension Father Hypertension Mother Cancer of kidney Maternal Aunt Breast cancer Paternal Aunt Breast cancer Social History Household Members: Family and Children Housing: House Are you a primary rehab care assistant to a significant other at home: No Do you presently have visiting nurse or other home services: No Alcohol intake: never Patient Tobacco Use Status: Never used Tobacco e-Cigarette/Vaping Use: Never Used service: No Current occupational status: employed Cognitive needs: No Hearing needs: No Vision needs: Yes Female Reproductive History Menstrual Age of Menarche: 10 Review of Systems Const Denies chills and Denies fever(s) Card Denies chest pain, Denies dyspnea and Denies dyspnea on exertion Resp Denies cough, Denies dyspnea and Denies dyspnea on exertion GI Denies hematochezia and Denies change in bowel habits Denies hematuria Musc Denies back pain and Denies limited range of motion Neuro Denies focal weakness and Denies convulsions Psych Denies depression and Denies mood swings Physical Exam Vital Signs: Last Vital Signs Pulse 74 10/15/22 09:50 BP 129/79 10/15/22 09:50 BMI result Body Mass Index 25.8 Const General: comfortable and no acute distress Orientation/consciousness: patient oriented x3 Neck Neck: Yes no lymphadenopathy Chest Other: No palpable breast masses, no nipple or skin changes, no axillary lymphadenopathy Resp Auscultation: clear to auscultation bilaterally Cardio Rhythm: regular rhythm GI Palpation (GI): Soft to palpation, nontender and no guarding Neuro General: patient oriented x3 Assessment & Plan Assessment & Plan (1) Hx of breast cancer: Code(s): Z85.3 - Personal history of malignant neoplasm of breast Plan: Her current exam does not reveal any changes with regards to her breasts. She had a mammogram last August, which was unremarkable. She is continue with her yearly mammogram for surveillance. I will see her in the office next year after her follow-up mammogram. She says she also continues to follow-up with Dr. Barrera of Oncology Coding Level of Care Code Est Pt Level 3 (06281) Diagnoses Hx of breast cancer Z85.3
== END 2022-10-15 10:06 | disposition home or self-care (01) ==
PROVIDERS: PCP Internal Medicine; Visit Provider Surgery
DX: Z85.3 Personal history of malignant neoplasm of breast (principal)
CPT/HCPCS: 99213

== ENCOUNTER → 2022-10-15 09:48 | Outpatient (BNVA) | payer OTHER, SELFPAY | PROVIDERS: PCP Internal Medicine; Visit Provider Surgery | DX: C50.912 Malignant neoplasm of unspecified site of left female breast (principal); Z90.12 Acquired absence of left breast and nipple; Z42.1 Encounter for breast reconstruction following mastectomy; Z79.810 Long term (current) use of selective estrogen receptor modulators (SERMs) | CPT/HCPCS: 99212 ==

== ENCOUNTER 2023-01-03 11:45 | Outpatient (REF) | payer OTHER, SELFPAY ==
--- NOTE | ~2023-01-03 | MR_ITS ---
EXAMINATION: MR BREAST WITHOUT AND WITH CONTRAST, BILATERAL CLINICAL INFORMATION: High-risk screening. History of left breast mastectomy with free flap reconstruction. History of right reduction mammoplasty, 2018. COMPARISON: MRI 05/24/2022, 04/14/2021, 10/29/2018 TECHNIQUE: Imaging was performed with a dedicated breast coil. Prior to the administration of contrast, bilateral axial T1 and bilateral axial T2 weighted sequences were obtained. After the uneventful administration of?7.5 mL of Gadavist, dynamic contrast-enhanced VIBRANT series through the breasts in the axial plane were performed. Subtracted images were performed and reviewed. A delayed sagittal sequence through both breasts was acquired. Additionally, CAD post-processing, including maximum intensity projections, 3-D reconstructions and kinetic analysis, were performed an independent workstation and reviewed by the interpreting radiologist is a portion of this exam. FINDINGS: The patient's fibroglandular tissue demonstrates moderate background enhancement. LEFT BREAST: No abnormal enhancement of the left chest wall status post free flap reconstruction. Review of the T2-weighted images demonstrates no additional findings. RIGHT BREAST: No suspicious masslike or non-masslike enhancement. No abnormal skin thickening or nipple retraction. No abnormal architectural distortion. Review of the T2 weighted images demonstrates no fibrocystic changes or dilated ducts. Review of kinetic images reveals no additional findings. There is no suspicious internal mammary chain or axillary adenopathy. Limited views of the chest and abdomen are unremarkable. MR/MR breast BI wo/w con IMPRESSION: No MR specific evidence of new or recurrent malignancy. ASSESSMENT: LEFT BREAST: BI-RADS 1-Negative RIGHT BREAST: BI-RADS 1-Negative RECOMMENDATIONS: Clinical follow-up. Continued right sided mammographic surveillance. Further MRI imaging as risk factors dictate.
[2023-01-03] MEDS: gadobutroL 7.5 ML VIAL IVPUSH (13:06)
== END 2023-01-03 11:46 | disposition home or self-care (01) ==
LOC: HO.MRI 11:45
PROVIDERS: Visit Provider Internal Medicine Medical Oncology
DX: C50.919 Malignant neoplasm of unspecified site of unspecified female breast (principal)
CPT/HCPCS: 77049; A9585

== ENCOUNTER 2023-05-02 11:13 | Outpatient (AMB) | payer BC, OTHER, SELFPAY ==
[2023-05-02 11:18] VITALS: BP 120/78; PULSE 86; TEMP 36.5; O2SAT 97; BMI 26.6
--- NOTE | 2023-05-02 11:18 | AM.OFFWIN_ITS ---
Intake Vital Signs 05/02/23 11:18 Height 5 ft 6 in Weight 165 lb BMI 26.6 BP 120/78 Blood Pressure Location Lt brachial Position Sitting Pulse 86 Pulse Source Pulse Oximeter Temp 97.7 F Temp Source Temporal Artery Scan Pulse Oximetry (%) 97 Oxygen Delivery Method Room Air Intake Visit Reasons: EP Severe stomach pain naseaus (lobby) Intake Note: pt is here today for severe stomach pain nauseas started saturday Patient Tobacco Use Status: Never used Tobacco Allergies latex Allergy (Intermediate, Verified 05/02/23 11:18) rash silver [From TEGADERM AG MESH] Allergy (Mild, Verified 05/02/23 11:18) rash amoxicillin Allergy (Unknown, Verified 05/02/23 11:18) hives Penicillins [PENICILLINS] Adverse Reaction (Intermediate, Verified 05/02/23 11:18) VOMITTING/HIVES bandage tape Allergy (Mild, Uncoded 11/05/22 14:51) rash Do you need a note to return to daycare/school/sports/work: Yes HPI EP Severe stomach pain naseaus (lobby) HPI Details This is a 32 year old female patient who presents today with a 2 day history of nausea, vomiting, diarrhea, and stomach cramps. Denies any fevers. Denies known exposure to sick contacts. Able to tolerate small amounts of fluids and soup. Denies any dizziness. [facility] Medical History Ingrown hair Long-term current use of tamoxifen Cyst of right ovary Vitamin D deficiency Hypertriglyceridemia Hx of breast cancer Cervix abnormality Breast cancer Surgical History History of abdominoplasty History of breast reconstruction History of left total mastectomy Family History Mother Hypertension Father Hypertension Mother Cancer of kidney Maternal Aunt Breast cancer Paternal Aunt Breast cancer Social History Household Members: Family and Children Housing: House Are you a primary home care attendant to a significant other at home: No Do you presently have visiting nurse or other home services: No Alcohol intake: never Patient Tobacco Use Status: Never used Tobacco e-Cigarette/Vaping Use: Never Used service: No Current occupational status: employed Cognitive needs: No Hearing needs: No Vision needs: Yes Female Reproductive History Menstrual Age of Menarche: 10 Review of Systems Const All systems reviewed & are unremarkable except as noted in HPI and below Physical Exam Vital Signs: Last Vital Signs Temp 97.7 F 05/02/23 11:18 Pulse 86 05/02/23 11:18 BP 120/78 05/02/23 11:18 Pulse Ox 97 05/02/23 11:18 Oxygen Delivery Method Room Air 05/02/23 11:18 BMI result Body Mass Index 26.6 Const General: cooperative and no acute distress Nutritional Appearance: average body habitus Resp Effort & Inspection: normal respiratory effort Auscultation: clear to auscultation bilaterally Cardio Palpation: normal PMI Rate: regular rate Rhythm: regular rhythm GI Inspection: Yes normal to inspection Palpation (GI): Soft to palpation (nontender) and No hepatosplenomegaly present Auscultation: normal bowel sounds Skin General skin exam: no rashes or lesions noted Extrem General: Yes capillary refill normal and Yes no clubbing, cyanosis or edema Psych Appearance: grossly normal Mental Status: mental status grossly normal Speech and movement: Normal speech and movement present Assessment & Plan Assessment & Plan (1) Viral gastroenteritis: Code(s): A08.4 - Viral intestinal infection, unspecified Plan: Symptoms consistent with viral illness. Advised trying to increase fluid intake, and advancing diet as tolerated. Will prescribe Zofran and Loperamide for the nausea/diarrhea respectively. Reviewed indications, use, possible s/e of these. Work note provided. If she does not improve with treatment or if symptoms worsen, she can return to the [place] clinic or ED for further evaluation. She verbalizes understanding and agrees to plan. Medications: New ondansetron HCl 4 mg PO Q8H PRN 14 tabs 0RF nausea and vomiting A08.4 - Viral intestinal infection, unspecified loperamide Take up to 4 times per day as needed for diarrhea. 2 mg PO Q6H PRN 10 tabs 0RF loose stool A08.4 - Viral intestinal infection, unspecified Coding Level of Care Code Est Pt Level 3 (09166) Diagnoses Viral gastroenteritis A08.4
== END 2023-05-02 11:54 | disposition home or self-care (01) ==
PROVIDERS: PCP Internal Medicine; Visit Provider Nurse Practitioner Family
DX: A08.4 Viral intestinal infection, unspecified (principal)
CPT/HCPCS: 99213

== ENCOUNTER 2023-05-22 09:45 | Outpatient (AMB) | payer OTHER, SELFPAY ==
--- NOTE | 2023-05-22 09:47 | A.OFFVIS_ITS ---
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 Doing well with no concerns. She tries to eat healthy and stays active with exercise. Regular monthly menses, skipped her cycle in April, home test was negative. She admits to increased stress. Using the ParaGard. Currently is sexually active 2yrs. She denies vaginal itching and irritation today, using a OTC pH balance tablets. STI screening offered; she declines. History of breast cancer currently on Tamoxifen for 10 years. Last pap smear 2021, negative. [facility] Medical History Long-term current use of tamoxifen Cyst of right ovary Vitamin D deficiency Hypertriglyceridemia Hx of breast cancer Cervix abnormality Breast cancer Surgical History History of abdominoplasty History of breast reconstruction History of left total mastectomy Family History Mother Hypertension Father Hypertension Mother Cancer of kidney Maternal Aunt Breast cancer Paternal Aunt Breast cancer Social History Household Members: Family and Children Housing: House Are you a primary transitional care manager to a significant other at home: No Do you presently have visiting nurse or other home services: No Alcohol intake: never Patient Tobacco Use Status: Never used Tobacco e-Cigarette/Vaping Use: Never Used service: No Current occupational status: employed Cognitive needs: No Hearing needs: No Vision needs: Yes Female Reproductive History Menstrual Age of Menarche: 10 Date of last menstrual period: 04/18/23 control method: copper IUCD (Paragard 06/20/21) Total pregnancies: 1 Full term: 1 Number of Living Children: 1 Date of last pap smear: 05/05/21 (neg pap and hpv) Date of Mammogram: 09/05/22 (Birad 2) History of abnormal mammogram: Yes Review of Systems Const All systems reviewed & are unremarkable except as noted in HPI and below Reports as per HPI Eyes Reports no additional complaints ENT Reports no additional complaints Card Reports no additional complaints Resp Reports no additional complaints GI Reports as per HPI and Reports no additional complaints Reports as per HPI Musc Reports no additional complaints Skin/Breast Reports as per HPI Neuro Reports no additional complaints Psych Reports no additional complaints Endo Reports no additional complaints Bridger/Lymph Reports no additional complaints Aller/Immun Reports no additional complaints Physical Exam Vital Signs: Last Vital Signs BP 122/84 05/22/23 09:50 BMI result Body Mass Index 27.0 Const General: cooperative, healthy appearing, no acute distress, well developed and alert Orientation/consciousness: patient oriented x3 HEENT Head: Yes normal to inspection Eyes General: appearance normal, both eyes and all related structures Neck Neck: Yes normal visual inspection Thyroid: Thyroid normal Chest Other: Bilateral breast reconstruction surgery Chest palpation & inspection: normal inspection of the chest and other (no puckering, dimpling, peau de orange, retraction, discharge, masses) Breast/axilla inspection: normal inspection of the breasts Breast/axilla palpation: normal palpation of the breasts Resp Effort & Inspection: normal respiratory effort GI Inspection: Yes normal to inspection and Yes scar Palpation (GI): Soft to palpation Rectal Exam - Female: deferred General: Yes bladder normal to palpation External Female Exam: normal external appearance and normal appearance of the urethra Speculum Exam - Vagina: normal appearance of the vagina, normal palpation and abnormal vaginal discharge (Yellow-green color) Speculum Exam - Cervix: normal appearance of the cervix, normal palpation and Other cervical findings present (Short IUD string found at os) Bimanual exam- vagina & uterus: normal bimanual exam, normal palpation, uterine size normal, bladder normal to palpation, normal palpation and non-tender Bimanual Exam- Adnexa, other: no masses Skin General skin exam: no rashes or lesions noted Rashes: no rashes Neuro General: patient oriented x3 Cognition (Neuro): normal cognition Extrem General: Yes normal to inspection Psych Attitude: cooperative Thought process: Normal thought process present Assessment & Plan Assessment & Plan (1) Encounter for well woman exam with routine gynecological exam: Code(s): Z01.419 - Encounter for gynecological examination (general) (routine) without abnormal findings Plan Discussed: Current recommendations for pap smears per ASCCP guidelines. Breast awareness and periodic breast exams. Maintain a healthy lifestyle including a well balanced diet and routine exercise. BV panel sent. Urine test is negative. Patient verbalizes understanding and agrees to the plan of care. She was given opportunity to ask questions and all questions were answered to the best of my ability. 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 This note is constructed using voice recognition software. While every effort has been made to ensure accuracy, church warden errors may have been included. Orders: Orders Bacterial Vaginosis Panel Today N89.8 - Other specified noninflammatory disorders of vagina AMB HCG Urine Test Today N92.6 - Irregular menstruation, unspecified Coding Level of Care Code Est Pt Prev Care 18-39y(39848) Diagnoses Encounter for well woman exam with routine gynecological exam Z01.419
[2023-05-22 09:50] VITALS: BP 122/84; BMI 27.0
== END 2023-05-22 10:34 | disposition home or self-care (01) ==
PROVIDERS: PCP Internal Medicine; Visit Provider Advanced Practice Midwife
DX: N92.6 Irregular menstruation, unspecified (principal); Z01.419 Encounter for gynecological examination (general) (routine) without abnormal findings
CPT/HCPCS: 99395

== ENCOUNTER 2023-05-22 09:45 | Outpatient (REF) | payer OTHER, SELFPAY ==
[2023-05-23 12:56] LABS: BV Int Neg Control Negative (Negative); BV Int Pos Control Positive (Positive)
== END 2023-05-22 09:46 | disposition home or self-care (01) ==
LOC: HO.LAB 09:45
PROVIDERS: PCP Internal Medicine; Visit Provider Advanced Practice Midwife
DX: Z00.00 Encounter for general adult medical examination without abnormal findings (principal)
CPT/HCPCS: 81025; 87480; 87510; 87660; 99395

== ENCOUNTER 2023-05-23 08:44 | Outpatient (AMB) | payer BC, SELFPAY ==
[2023-05-23 08:59] VITALS: BP 124/86; PULSE 79; O2SAT 100; BMI 27.0
--- NOTE | 2023-05-23 08:59 | A.OFFPC_ITS ---
Vital Signs 05/23/23 08:59 Height 5 ft 6 in Weight 167 lb BMI 27.0 BP 124/86 Blood Pressure Location Rt brachial Position Sitting Pulse 79 Pulse Source Pulse Oximeter Pulse Oximetry (%) 100 Oxygen Delivery Method Room Air Intake Visit Reasons: Annual PE/ok per Dr. Major Intake Note: Pt is here today for her PE:Last papsmear 04/19/21 Allergies latex Allergy (Intermediate, Verified 05/23/23 09:27) rash silver [From TEGADERM AG MESH] Allergy (Mild, Verified 05/23/23 09:27) rash amoxicillin Allergy (Unknown, Verified 05/23/23 09:27) hives Penicillins [PENICILLINS] Adverse Reaction (Intermediate, Verified 05/23/23 09:27) VOMITTING/HIVES bandage tape Allergy (Mild, Uncoded 05/23/23 09:27) rash Medication List - Last Reconciled 05/23/23 by Kimberly Lagos MD acetaminophen (Tylenol Extra Strength) 1,000 mg PO Q6H PRN copper (ParaGard T 380A) 380 device intrauterine DAILY multivitamin 1 tab PO DAILY tamoxifen 20 mg PO DAILY Tobacco use date assessed: 05/23/23 Dental Screening Dental Screen Date: 05/23/23 Did you have a dental visit in the last 12 months?: No Was dental information given to patient?: Patient has dentist HPI Annual PE/ok per Dr. 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 She is currently being followed by Dr. Byrd for breast surveillance, had an MRI of the breast end of last year with no evidence of malignancy. She is up-to-date with her cervical cancer screening, last done in 2021. She has been feeling well, but complains of a recurrent itchy rash on her hand, needs refill on her fluocinonide prescription, she uses as needed, which has helped. [facility] Medical History (Updated 05/26/23 @ 23:49 by Kimberly Lagos MD) Dyshidrotic eczema Long-term current use of tamoxifen Cyst of right ovary Vitamin D deficiency Hypertriglyceridemia Hx of breast cancer Cervix abnormality Breast cancer Surgical History History of abdominoplasty History of breast reconstruction History of left total mastectomy Family History Mother Hypertension Father Hypertension Mother Cancer of kidney Maternal Aunt Breast cancer Paternal Aunt Breast cancer Social History Household Members: Family and Children Housing: House Are you a primary adult daycare coordinator to a significant other at home: No Do you presently have visiting nurse or other home services: No Alcohol intake: never Patient Tobacco Use Status: Never used Tobacco e-Cigarette/Vaping Use: Never Used service: No Current occupational status: employed Cognitive needs: No Hearing needs: No Vision needs: Yes Female Reproductive History Menstrual Age of Menarche: 10 Questionnaire PHQ-9 Over the last 2 weeks, how often have you been bothered by any of the following problems? 1. Little interest or pleasure in doing things: not at all 2. Feeling down, depressed, or hopeless: not at all 3. Trouble falling or staying asleep, or sleeping too much: not at all 4. Feeling tired or having little energy: not at all 5. Poor appetite or overeating: not at all 6. Feeling bad about yourself - or that you are a failure or have let yourself or your family down: not at all 7. Trouble concentrating on things, such as reading the newspaper or watching television: not at all 8. Moving or speaking so slowly that other people could have noticed. Or the op posite - being so fidgety or restless that you have been moving around a lot more than usual: not at all 9. Thoughts that you would be better off or of hurting yourself in some way: not at all Total score: 0 Depression Screening Interpretation: Negative Depression Screening Done: Yes 37568 - PHQ-9 Billing: Yes Source: Developed by Drs. Morgan Nuno, Ann Bellamy, Bishop Alcantara and colleagues, with an educational apurva from [employer] Thrive Questionnaire Date Thrive assessed: 05/23/23 I am a: Patient What is your living situation today?: I have a steady place to live Within the past 12 months, did the food you bought not last and you didn't have the money to get more?: Never true Within the past 12 months, did you worry whether your food would run out before you got money to buy more?: Never true Do you have trouble paying for medicines?: No Do you have trouble getting transportation to medical appointments?: No Do you have trouble paying your heating and electricity bill?: No Do you have trouble taking care of your child, family member or friend?: No Do you have trouble with day-to-day activities such as bathing, preparing meals, shopping, managing finances, etc.?: No Are you currently unemployed and looking for a job?: No Are you interested in more education?: No THRIVE Score: 0 AUDIT C Alcohol Use Questionnaire (AUDIT-C) 1. How often do you have a drink containing alcohol?: Never Total Score: 0 RINKU-7 AMB Questionnaire RINKU-7 Date RINKU - 7 assessed: 05/23/23 Feeling nervous, anxious, or on edge: 0 = Not at all Not being able to stop or control worryin = Not at all Worrying too much about different things: 1 = Several days Trouble relaxin = Not at all Being so restless that it is hard to sit still: 0 = Not at all Becoming easily annoyed or irritable: 0 = Not at all Feeling afraid as if something awful might happen: 0 = Not at all Total RINKU-7 score (0-4 normal; 5-9 mild; 10-14 moderate; 15-21 severe): 1 Source: Developed by Drs. Morgan Nuno, Ann Bellamy, Bishop Alcantara and colleagues, with an educational apurva from [employer] Review of Systems Const All systems reviewed & are unremarkable except as noted in HPI and below Reports as per HPI Eyes Reports no additional complaints ENT Reports no additional complaints Card Reports no additional complaints Resp Reports no additional complaints GI Reports as per HPI and Reports no additional complaints Reports as per HPI Musc Reports no additional complaints Skin/Breast Reports as per HPI Neuro Reports no additional complaints Psych Reports no additional complaints Endo Reports no additional complaints Bridger/Lymph Reports no additional complaints Aller/Immun Reports no additional complaints Physical exam (Primary Care) Vital Signs: Last Vital Signs Pulse 79 04/04/24 08:59 BP 124/86 05/23/23 08:59 Pulse Ox 100 05/23/23 08:59 Oxygen Delivery Method Room Air 05/23/23 08:59 BMI result Body Mass Index 27.0 Tobacco/Smoking Status: Tobacco use Status Tobacco use date assessed 05/23/23 05/23/23 09:16 Patient Tobacco Use Status Never used Tobacco 05/23/23 09:01 e-Cigarette/Vaping Use Never Used 05/23/23 09:01 PHQ-9: PHQ-9 Score PHQ-9: Total score 0 05/23/23 09:42 Depression Screening Interpretation: Negative Thrive Assessment: Date of Thrive Assessment Date Thrive assessed 05/23/23 05/23/23 09:19 Const General: no acute distress and alert Orientation/consciousness: patient oriented x3 HENMT Head: Yes normocephalic Ears: external ears normal, TM's normal bilaterally and EAC's normal General nose exam: Normal external nose present Face and sinus: Yes face symmetric Mouth: Normal oral and palatal mucosa present, oropharynx normal and moist mucous membranes Eyes General: appearance normal, both eyes and all related structures Conjunctivae: conjunctivae normal Pupils: Equal, round and reactive pupils present EOM: EOMs intact bilaterally Neck Neck: Yes full ROM, Yes no lymphadenopathy and Yes supple Thyroid: Thyroid normal Chest Other: Positive reconstruction surgery on the left breast, no palpable mass on right breast Resp Effort & Inspection: normal respiratory effort and able to speak in complete sentences Auscultation: clear to auscultation bilaterally Cardio Rate: regular rate Rhythm: regular rhythm Heart sounds: S1 normal heart sound present and S2 normal heart sound present GI Palpation (GI): Soft to palpation, nontender, no guarding and no masses Auscultation: normal bowel sounds General: Yes no CVA tenderness Back/Spine/Pelvis Back: no CVA tenderness and No back tenderness Skin Other: Erythematous papular rash present on palm of right hand Neuro General: patient oriented x3, gait normal, moves all extremities, Normal light touch and pain sensation, no focal motor deficits and CN's II-XI intact bilaterally Cranial nerves: Yes Equal, round and reactive pupils present Cognition (Neuro): normal cognition Gait exam (Neuro): Normal gait present Motor exam (neuro): 5/5 motor strength present throughout Extrem General: Yes normal to inspection, Yes full ROM, Yes no joint enlargement, Yes no pedal edema and Yes normal gait Psych Appearance: grossly normal and well kempt Mental Status: mental status grossly normal Speech and movement: Normal speech and movement present Affect: normal affect Attitude: cooperative Thought process: Normal thought process present Thought content: Normal thought content present Assessment and Plan Assessment & Plan (1) Annual visit for general adult medical examination with abnormal findings: Code(s): Z00.01 - Encounter for general adult medical examination with abnormal findings Plan: Will check appropriate labs. Recommended dental visit every 6 months and regular eye exams, at least every 2 years. Take adequate calcium in diet and vitamin-D 3 at 2000 IU per cap once a day, in addition to weight-bearing exercises to help maintain good muscle tone and weight control. Instructed to do self-breast exam, and continue yearly mammogram, currently followed by Oncology. Up-to-date with her cervical cancer screening. She has had COVID vaccines in the past but does not want to get a booster nor does she want to get flu vaccine, up-to-date with her Tdap (2) Hx of breast cancer: Code(s): Z85.3 - Personal history of malignant neoplasm of breast Plan: Jj followed by Oncology, currently on tamoxifen (3) Dyshidrotic eczema: Comment: Right hand Code(s): L30.1 - Dyshidrosis [pompholyx] Plan: Prescription refill sent for fluocinonide 0.1% cream to be applied sparingly to affected area on hand twice a day for no more than 10 days at a time. (4) Hypertriglyceridemia: Code(s): E78.1 - Pure hyperglyceridemia Plan: Fasting lipid panel ordered, reinforced importance of following a low- cholesterol diet and getting regular exercise. Orders: Orders Lipid Panel 05/23/23 E78.1 - Pure hyperglyceridemia, Z00.01 - Encounter for general adult medical examination with abnormal findings, Z79.810 - FDC (current) use of selective estrogen receptor modulators (SERMs) Vitamin D 25-OH Total 05/23/23 E78.1 - Pure hyperglyceridemia, Z00.01 - Encounter for general adult medical examination with abnormal findings, Z79.810 - superintendent container terminal (current) use of selective estrogen receptor modulators (SERMs) Alanine Aminotransferase 05/23/23 E78.1 - Pure hyperglyceridemia, Z00.01 - Encounter for general adult medical examination with abnormal findings Aspartate Amino Transferase 05/23/23 E78.1 - Pure hyperglyceridemia, Z00.01 - Encounter for general adult medical examination with abnormal findings Medications: New fluocinonide 0.1% 1 appl topical BID 10 days 30 grams 0RF L30.1 - Dyshidrosis [pompholyx] Coding Level of Care Code Est Pt Prev Care 18-39y(42186) Diagnoses Annual visit for general adult medical examination with abnormal findings Z00.01 Hx of breast cancer Z85.3 Dyshidrotic eczema L30.1 Hypertriglyceridemia E78.1
== END 2023-05-23 09:43 | disposition home or self-care (01) ==
PROVIDERS: PCP Internal Medicine; Visit Provider Internal Medicine
DX: Z00.01 Encounter for general adult medical examination with abnormal findings (principal); Z85.3 Personal history of malignant neoplasm of breast; L30.1 Dyshidrosis [pompholyx]; E78.1 Pure hyperglyceridemia
CPT/HCPCS: 99395

== ENCOUNTER 2023-05-23 09:44 | Outpatient (REF) | payer BC, SELFPAY ==
[2023-05-23 13:29] LABS: Alanine Aminotransferase 13 U/L (0-31); Aspartate Amino Transferase 18 U/L (5-31); Cholesterol 215 mg/dL (<200); HDL Cholesterol 41 mg/dL (>40); LDL Cholesterol Calculated 99 mg/dL (<100); Triglycerides 377 mg/dL (<150)
[2023-05-23 13:44] LABS: Vitamin D 25-OH Total 61.7 ng/mL (>30)
== END 2023-05-23 09:45 | disposition home or self-care (01) ==
LOC: HO.HMGCLDS 09:44
PROVIDERS: PCP Internal Medicine; Visit Provider Internal Medicine
DX: Z00.01 Encounter for general adult medical examination with abnormal findings (principal); E78.1 Pure hyperglyceridemia; Z79.810 Long term (current) use of selective estrogen receptor modulators (SERMs)
CPT/HCPCS: 36415; 80061; 82306; 84450; 84460

== ENCOUNTER 2023-09-11 13:39 | Outpatient (REF) | payer BC, SELFPAY ==
--- NOTE | ~2023-09-11 | MM_ITS ---
EXAMINATION: MM SCREENING DIGITAL BREAST TOMOSYNTHESIS, BILATERAL CLINICAL INFORMATION: Screening. Asymptomatic. The patient is status post left mastectomy and right breast reduction. COMPARISON: Mammography: This study is compared with prior exams dating back to 2019. TECHNIQUE: Digital breast tomosynthesis is performed in both the craniocaudal and mediolateral oblique views along with computer-aided detection (CAD). Synthesized 2D images are generated from the tomosynthesis. FINDINGS: There are scattered areas of fibroglandular density (ACR BI-RADS breast composition Category b). There are no significant masses, abnormal calcifications, or other abnormalities. Post reduction changes of the right breast are present. MM/MM tomosynthesis screening RT IMPRESSION: No mammographic evidence of malignancy. ASSESSMENT: BI-RADS BI-RADS 2 - Benign Findings RECOMMENDATION: Routine annual mammography screening. 1 year F/U This examination should not preclude the clinical evaluation of a suspicious palpable abnormality. This patient's information was entered into a reminder system with a target due date for their next mammogram.
== END 2023-09-11 13:40 | disposition home or self-care (01) ==
LOC: HO.MAMMO 13:39
PROVIDERS: PCP Internal Medicine; Visit Provider Internal Medicine
DX: Z12.31 Encounter for screening mammogram for malignant neoplasm of breast (principal)
CPT/HCPCS: 77063; 77067

== ENCOUNTER → 2023-09-11 13:45 | Outpatient (BNV) | payer BC, SELFPAY | PROVIDERS: PCP Internal Medicine; Visit Provider Radiology Diagnostic Radiology | DX: Z12.31 Encounter for screening mammogram for malignant neoplasm of breast (principal) | CPT/HCPCS: 77063; 77067 ==

== ENCOUNTER 2023-11-14 09:38 | Outpatient (AMB) | payer BC, SELFPAY ==
[2023-11-14 09:40] VITALS: BP 138/85; PULSE 100; BMI 27.8
--- NOTE | 2023-11-14 09:40 | MHC.OFFVIS ---
Vital Signs 11/14/23 09:40 Height 5 ft 6 in Weight 172 lb BMI 27.8 BP 138/85 Blood Pressure Location Rt brachial Position Sitting Pulse 100 Intake Visit Reasons: yearly breast exam Intake Note: Patient is seen in office for yearly breast exam. Pt c/o: reports no breast complaints. MRI:01/03/23 DUE mm:09/01/23 Carson:11/05/23 Office Support Clerk Required: No Accompanied by: Self / Same As Patient Allergies latex Allergy (Intermediate, Verified 11/14/23 09:45) rash silver [From TEGADERM AG MESH] Allergy (Mild, Verified 11/14/23 09:45) rash amoxicillin Allergy (Unknown, Verified 11/14/23 09:45) hives Penicillins [PENICILLINS] Adverse Reaction (Intermediate, Verified 11/14/23 09:45) VOMITTING/HIVES bandage tape Allergy (Mild, Uncoded 11/14/23 09:45) rash HPI HPI yearly breast exam: Details: She is here for a follow-up for her history of breast cancer.? She had undergone left breast mastectomy with sentinel node biopsy in 2018? for invasive ductal cancer.? She had 1 lymph node with micrometastasis at that time.? She also had undergone breast reconstruction for that.? She had completed adjuvant treatment with Cytoxan, Adriamycin and Taxol. She continues do well.? She denies any palpable breast masses or nipple or skin changes.? She is still on antiestrogen treatment with tamoxifen. She denies any health concerns at this time. She had her screening mammogram last September,. This showed benign findings with no suggestion of any neoplastic process in the contralateral breast. [facility] Medical History Dyshidrotic eczema Long-term current use of tamoxifen Cyst of right ovary Vitamin D deficiency Hypertriglyceridemia Hx of breast cancer Cervix abnormality Breast cancer Surgical History History of abdominoplasty History of breast reconstruction History of left total mastectomy Family History Mother Hypertension Father Hypertension Mother Cancer of kidney Maternal Aunt Breast cancer Paternal Aunt Breast cancer Social History Household Members: Family and Children Housing: House Are you a primary director of career services to a significant other at home: No Do you presently have visiting nurse or other home services: No Alcohol intake: never Patient Tobacco Use Status: Never used Tobacco e-Cigarette/Vaping Use: Never Used service: No Current occupational status: employed Cognitive needs: No Hearing needs: No Vision needs: Yes Female Reproductive History Menstrual Age of Menarche: 10 Review of Systems Const Denies chills and Denies fever(s) Card Denies chest pain, Denies dyspnea and Denies dyspnea on exertion Resp Denies cough, Denies dyspnea and Denies dyspnea on exertion GI Denies hematochezia and Denies change in bowel habits Denies hematuria Musc Denies back pain and Denies limited range of motion Neuro Denies focal weakness and Denies convulsions Psych Denies depression and Denies mood swings Physical Exam Vital Signs: Last Vital Signs Pulse 100 11/14/23 09:40 BP 138/85 11/14/23 09:40 BMI result Body Mass Index 27.8 Const General: comfortable and no acute distress Orientation/consciousness: patient oriented x3 Neck Neck: Yes no lymphadenopathy Chest Other: No palpable breast mass on the right breast, no axillary lymphadenopathy She has a reconstruction of the left breast with the rectus muscle Resp Auscultation: clear to auscultation bilaterally Cardio Rhythm: regular rhythm GI Palpation (GI): Soft to palpation, nontender and no guarding Neuro General: patient oriented x3 Assessment & Plan Assessment & Plan (1) Hx of breast cancer: Code(s): Z85.3 - Personal history of malignant neoplasm of breast Category: Medical Plan: Her screening mammogram from September, did not show any significant findings on the contralateral breast on the right. Physical exam does not reveal any palpable breast mass or any axillary lymphadenopathy . I reminded her to continue with regular screening mammograms. I will see her again in the office next year. She continues to be on tamoxifen. Coding Level of Care Code Est Pt Level 3 (57763) Diagnoses Hx of breast cancer Z85.3
== END 2023-11-14 10:29 | disposition home or self-care (01) ==
PROVIDERS: PCP Internal Medicine; Visit Provider Surgery
DX: Z85.3 Personal history of malignant neoplasm of breast (principal)
CPT/HCPCS: 99213

== ENCOUNTER → 2023-11-14 09:38 | Outpatient (BNVA) | payer BC, SELFPAY | PROVIDERS: PCP Internal Medicine; Visit Provider Surgery ==

== ENCOUNTER → 2024-03-23 10:50 | Outpatient (BNV) | payer BC, SELFPAY | PROVIDERS: PCP Internal Medicine; Visit Provider Internal Medicine | DX: Z85.3 Personal history of malignant neoplasm of breast (principal) | CPT/HCPCS: 77049 ==

== ENCOUNTER 2024-03-23 10:55 | Outpatient (REF) | payer BC, SELFPAY ==
--- NOTE | ~2024-03-23 | MR_ITS ---
EXAMINATION: MR BREAST WITHOUT AND WITH CONTRAST, BILATERAL CLINICAL INFORMATION: History of left breast cancer in 2018 status post mastectomy with flap reconstruction and right breast reduction mammoplasty. Strong family history of breast cancer including grandmother and 2 aunts. COMPARISON: Mammography August 2023 breast MRI January 07 May. TECHNIQUE: MR imaging of the breast was performed using T1, T2 and fat saturated techniques. Dynamic multiphase imaging was also performed after administration of intravenous gadolinium contrast agent. Computer generated 3-D reconstruction was performed. FINDINGS: The patient's fibroglandular tissue demonstrates moderate background enhancement. LEFT BREAST: Status post mastectomy changes with flap reconstruction. Artifact from postsurgical changes along the left medial chest wall lateral to the sternum again noted and unchanged from multiple priors. No suspicious enhancing masses or areas of nonmass enhancement. No axillary or internal mammary adenopathy. RIGHT BREAST: Status post reduction mammoplasty changes. No suspicious enhancing masses or areas of nonmass enhancement. Unexplained architectural distortion. No axillary or internal mammary adenopathy. Limited views of the chest and abdomen are unremarkable. MR/MR breast BI wo/w con IMPRESSION: No MRI evidence of malignancy bilaterally. ASSESSMENT: LEFT BREAST: BI-RADS 2 benign. RIGHT BREAST: BI-RADS 1-Negative RECOMMENDATIONS: Yearly mammography screening. Yearly MRI screening surveillance. Electronically signed by: Ashley Duque DO 03/29/2024 05:37 PM EST
== END 2024-03-23 10:56 | disposition home or self-care (01) ==
LOC: HO.MRI 10:55
PROVIDERS: PCP Internal Medicine; Visit Provider Internal Medicine Medical Oncology
DX: Z08 Encounter for follow-up examination after completed treatment for malignant neoplasm (principal); Z90.12 Acquired absence of left breast and nipple; Z85.3 Personal history of malignant neoplasm of breast
CPT/HCPCS: 77049

== ENCOUNTER 2024-06-01 12:31 | Outpatient (AMB) | payer BC, SELFPAY ==
[2024-06-01 13:01] VITALS: BP 136/90; PULSE 82; RESP 18; O2SAT 100; BMI 27.9
--- NOTE | 2024-06-01 13:01 | A.OFFPC_ITS ---
Vital Signs 06/01/24 13:01 Height 5 ft 6 in Weight 173 lb BMI 27.9 BP 136/90 H Blood Pressure Location Rt brachial Position Sitting Respiration 18 Pulse 82 Pulse Source Pulse Oximeter Pulse Oximetry (%) 100 Oxygen Delivery Method Room Air Intake Visit Reasons: Annual PE Intake Note: Pt is here today for annual physical. Last pap 05/08/21 Is last menstrual period known: Yes Last menstrual period: 05/28/24 Allergies latex Allergy (Intermediate, Verified 06/01/24 13:16) rash silver [From TEGADERM AG MESH] Allergy (Mild, Verified 06/01/24 13:16) rash amoxicillin Allergy (Unknown, Verified 06/01/24 13:16) hives Penicillins [PENICILLINS] Adverse Reaction (Intermediate, Verified 06/01/24 13:16) VOMITTING/HIVES bandage tape Allergy (Mild, Uncoded 06/01/24 13:16) rash Medication List - Last Reconciled 06/01/24 by Kimberly Lagos MD acetaminophen (Tylenol Extra Strength) 1,000 mg PO Q6H PRN clobetasol 0.05% 1 appl topical DAILY 10 days copper (ParaGard T 380A) 380 device intrauterine DAILY multivitamin 1 tab PO DAILY tamoxifen 20 mg PO DAILY Tobacco use date assessed: 06/01/24 Dental Screening Dental Screen Date: 06/01/24 Did you have a dental visit in the last 12 months?: Yes Did you have a dental problem in the last 6 months where you did not have access to dental care?: No Was dental information given to patient?: Patient has dentist HPI Annual PE HPI Details 34 year old lady with history of breast cancer, s/p left breast mastectomy with sentinel node biopsy in 2018? for invasive ductal cancer., then had 1 lymph node with micrometastasis at that time., underwent breast reconstruction and has completed adjuvant treatment with Cytoxan, Adriamycin and Taxol, now on tamoxifen, here today for her physical exam.. Sees OBGYN at [facility], up-to-date with her cervical cancer screening, done in 2021 with benign fin dings. Recently had a breast MRI done March 2024, which showed no evidence of any malignancy. Feels well with no complaints at present time. [facility] Medical History Dyshidrotic eczema Long-term current use of tamoxifen Cyst of right ovary Vitamin D deficiency Hypertriglyceridemia Hx of breast cancer Cervix abnormality Breast cancer Surgical History History of abdominoplasty History of breast reconstruction History of left total mastectomy Family History Mother Hypertension Father Hypertension Mother Cancer of kidney Maternal Aunt Breast cancer Paternal Aunt Breast cancer Social History Household Members: Family and Children Housing: House Are you a primary manager care management to a significant other at home: No Do you presently have visiting nurse or other home services: No Alcohol intake: never Patient Tobacco Use Status: Never used Tobacco e-Cigarette/Vaping Use: Never Used service: No Current occupational status: employed Cognitive needs: No Hearing needs: No Vision needs: Yes Female Reproductive History Menstrual Age of Menarche: 10 Date of last menstrual period: 05/28/24 Questionnaire PHQ-9 Over the last 2 weeks, how often have you been bothered by any of the following problems? Depression Screening Interpretation: Negative Depression Screening Done: Yes [id number] - PHQ-9 Billing: Patient declined-do not bill Source: Developed by Drs. Morgan Nuno, Ann Bellamy, Bishop Alcantara and colleagues, with an educational apurva from [employer]. Thrive Questionnaire Date Thrive assessed: 06/01/24 I am a: Patient What is your living situation today?: I have a steady place to live Within the past 12 months, did the food you bought not last and you didn't have the money to get more?: Never true Within the past 12 months, did you worry whether your food would run out before you got money to buy more?: Never true Do you have trouble paying for medicines?: No Do you have trouble getting transportation to medical appointments?: No Do you have trouble paying your heating and electricity bill?: No Do you have trouble taking care of your child, family member or friend?: No Do you have trouble with day-to-day activities such as bathing, preparing meals, shopping, managing finances, etc.?: No Are you currently unemployed and looking for a job?: No Are you interested in more education?: No THRIVE Score: 0 AUDIT C Alcohol Use Questionnaire (AUDIT-C) 1. How often do you have a drink containing alcohol?: Never 3. How often do you have six or more drinks on one occasion?: Never Total Score: 0 Score Reviewed/Action Taken: Yes RINKU-7 AMB Questionnaire RINKU-7 Date RINKU - 7 assessed: 05/23/23 Source: Developed by Drs. Morgan Nuno, Ann Bellamy, Bishop Alcantara and colleagues, with an educational apurva from [employer]. Review of Systems Const Denies chills and Denies fever(s) Eyes Details: goes to [facility] ENT Reports no additional complaints Card Denies chest pain, Denies dyspnea and Denies dyspnea on exertion Resp Denies cough, Denies dyspnea and Denies dyspnea on exertion GI Denies hematochezia and Denies change in bowel habits Denies hematuria Musc Denies back pain and Denies limited range of motion Skin/Breast Denies breast pain, Denies breast mass and Denies rash Neuro Denies focal weakness and Denies convulsions Psych Denies depression and Denies mood swings Endo Reports no additional complaints Bridger/Lymph Reports no additional complaints Aller/Immun Reports no additional complaints Physical exam (Primary Care) Vital Signs: Last Vital Signs Pulse 82 06/01/24 13:01 Resp 18 06/01/24 13:01 BP 136/90 H 06/01/24 13:01 Pulse Ox 100 06/01/24 13:01 Oxygen Delivery Method Room Air 06/01/24 13:01 BMI result Body Mass Index 27.9 Tobacco/Smoking Status: Tobacco use Status Tobacco use date assessed 06/01/24 06/01/24 13:04 Patient Tobacco Use Status Never used Tobacco 06/01/24 13:04 e-Cigarette/Vaping Use Never Used 06/01/24 13:04 Depression Screening Interpretation: Negative Thrive Assessment: Date of Thrive Assessment Date Thrive assessed 05/23/23 06/01/24 13:04 Const General: no acute distress and alert Orientation/consciousness: patient oriented x3 HENMT Head: Yes normocephalic Ears: external ears normal, TM's normal bilaterally and EAC's normal General nose exam: Normal external nose present Face and sinus: Yes face symmetric Mouth: Normal oral and palatal mucosa present, oropharynx normal and moist mucous membranes Eyes General: appearance normal, both eyes and all related structures Conjunctivae: conjunctivae normal Pupils: Equal, round and reactive pupils present EOM: EOMs intact bilaterally Neck Neck: Yes full ROM, Yes no lymphadenopathy and Yes supple Thyroid: Thyroid normal Chest Other: Positive reconstruction surgery on the left breast, no palpable mass on right breast Resp Effort & Inspection: normal respiratory effort and able to speak in complete sentences Auscultation: clear to auscultation bilaterally Cardio Rate: regular rate Rhythm: regular rhythm Heart sounds: S1 normal heart sound present and S2 normal heart sound present GI Palpation (GI): Soft to palpation, nontender, no guarding and no masses Auscultation: normal bowel sounds General: Yes no CVA tenderness Back/Spine/Pelvis Back: no CVA tenderness and No back tenderness Skin Other: Erythematous papular rash present on palm of right hand Neuro General: patient oriented x3, gait normal, moves all extremities, Normal light touch and pain sensation, no focal motor deficits and CN's II-XI intact bilaterally Cranial nerves: Yes Equal, round and reactive pupils present Cognition (Neuro): normal cognition Gait exam (Neuro): Normal gait present Motor exam (neuro): 5/5 motor strength present throughout Extrem General: Yes normal to inspection, Yes full ROM, Yes no joint enlargement, Yes no pedal edema and Yes normal gait Psych Appearance: grossly normal and well kempt Mental Status: mental status grossly normal Speech and movement: Normal speech and movement present Affect: normal affect Attitude: cooperative Thought process: Normal thought process present Thought content: Normal thought content present Results Reviewed Results Reviewed: Name: Demi Leigh Age/Sex: 33/F : 1990 Unit#: [id number] Attend Dr: Clarita Byrd MD Re05/04/24 Status: REG RCR Location: HO.ONC Disch: SPEC : [id number] RENETTA: 05/04/24 STATUS: COMP REQ : [id number] RECD: 05/04/[address]: Clarita Byrd MD COMP: 05/04/24 ENTERED: 05/04/[address]: Kimberly Lagos MD ORDERED: CBC Auto Diff Test Result Flag Reference WBC 10.5 4.8-10.8 X10*3/uL RBC 4.21 4.20-5.50 X10*6/uL HGB 11.9 L 12.0-16.0 g/dl HCT 36.0 L 37.0-47.0 % MCV 85.5 80.0-98.0 fL MCH 28.3 27.0-33.0 pg MCHC 33.1 31.0-35.0 g/dl RDW 12.5 11.0-16.0 % PLT 268 160-400 X10*3/uL MPV 9.6 9.4-12.3 fL Neut Pct Auto 54.1 45-73 % ImGran Pct Auto 0.6 H 0.0-0.4 % Lymp Pct Auto 33.9 20-40 % [place] Pct Auto 8.0 2-11 % Eos Pct Auto 2.7 0-4 % Baso Pct Auto 0.7 0-2 % NRBC Pct Auto 0.0 0.0-0.2 /100WBC ANC Neut Abs # 5.7 2.0-8.3 x10*3/uL ImGran Abs Auto 0.06 H 0.00-0.03 X10*3/uL Lymph Abs Auto 3.6 1.2-4.9 X10*3/uL [place] Abs Auto 0.8 0.1-1.2 X10*3/uL Eos Abs Auto 0.3 0.0-0.4 X10*3/uL Baso Abs Auto 0.1 0.0-0.2 X10*3/uL NRBC Abs Auto 0.000 0.0-0.012 X10*3/uL Name: Demi Leigh Age/Sex: 33/F : 1990 Unit#: [id number] Attend Dr: Clarita Byrd MD Re05/04/24 Status: REG RCR Location: .ONC Disch: SPEC : [id number] RENETTA: 05/04/24 STATUS: COMP REQ : [id number] RECD: 05/04/[address]: Clarita Byrd MD COMP: 05/04/24 ENTERED: 05/04/24-0943 [facility] DR: Kimberly Lagos MD ORDERED: CMP Test Result Flag Reference Sodium 142 135-145 mmol/L Potassium 3.7 3.3-5.1 mmol/L CL 110 H 96-108 mmol/L CO2 21 L 22-29 mmol/L Gap 15 12-20 BUN 16 9-16 mg/dL Creat 0.82 0.5-1.4 mg/dL Estimated CrCl 100.9 Provided height and weight: 167.64 cm, 78 kg. eGFR (calculated from the MDRD study equation) and eCrCl (calculated from the Cockcroft-Gault equation) are based on different parameters and may not yield comparable results. If eCrCl result is absurd, please check patient's height/weight. eGFR > 60 Chronic Kidney Disease: Estimated GFR < 60 mL/min/1.73m2 Severe Kidney Disease: Estimated GFR < 15 mL/min/1.73m2 Glucose, Random 104 60-115 mg/dL CA 8.7 8.4-10.2 mg/dL Total Bili 0.3 0.0-1.0 mg/dL AST (GOT) 27 5-31 U/L ALT (GPT) 28 0-31 U/L Protein, Total 7.5 6.5-8.0 g/dL Alb 4.0 3.5-5.0 g/dL Alk Phos 76 39-117 U/L Coding Level of Care Code Est Pt Prev Care 18-39y(01185) Diagnoses Annual visit for general adult medical examination with abnormal findings Z00.01 Hx of breast cancer Z85.3 Hypertriglyceridemia E78.1 Long-term current use of tamoxifen Z79.810 Anemia D64.9 Assessment & Plan Assessment & Plan (1) Annual visit for general adult medical examination with abnormal findings: Code(s): Z00.01 - Encounter for general adult medical examination with abnormal findings Category: Medical Plan: Will check appropriate labs. Recommended dental visit every 6 months and regular eye exams, at least every 2 years. Take adequate calcium in diet and vitamin-D 3 at 2000 IU per cap once a day, in addition to weight-bearing exercises to help maintain good muscle tone and weight control. Instructed to do self-breast exam, and continue with yearly mammogram, breast MRI per Oncology guidance. Up-to-date with her cervical cancer screening, has appointment already scheduled for November this year. Up-to-date with her Tdap, reminded to get her yearly flu vaccine but does not want to get further COVID vaccine boosters (2) Hx of breast cancer: Code(s): Z85.3 - Personal history of malignant neoplasm of breast Category: Medical Plan: Up-to-date with her breast cancer screening, currently on tamoxifen, followed by oncology (3) Hypertriglyceridemia: Code(s): E78.1 - Pure hyperglyceridemia Category: Medical Plan: Fasting lipid panel ordered. (4) Long-term current use of tamoxifen: Comment: 2018 x10yr. plan Code(s): Z79.810 - intermediate (current) use of selective estrogen receptor modulators (SERMs) Category: Medical Plan: Followed by Dr. Byrd, up-to-date with her cervical cancer screening, goes to [facility] OBGYN, scheduled to see them back again November 2024 (5) Anemia: Code(s): D64.9 - Anemia, unspecified Category: Medical Plan: Will check a CBC and iron profile Orders: Orders Lipid Panel 06/01/24 D64.9 - Anemia, unspecified, E78.1 - Pure hyperglyceridemia, Z79.810 - intermediate (current) use of selective estrogen receptor modulators (SERMs), Z00.01 - Encounter for general adult medical examination with abnormal findings Alanine Aminotransferase 06/01/24 D64.9 - Anemia, unspecified, E78.1 - Pure hyperglyceridemia, Z79.810 - intermediate (current) use of selective estrogen receptor modulators (SERMs), Z00.01 - Encounter for general adult medical examination with abnormal findings IRON PROFILE 06/01/24 D64.9 - Anemia, unspecified Aspartate Amino Transferase 06/01/24 D64.9 - Anemia, unspecified, E78.1 - Pure hyperglyceridemia, Z79.810 - termite exterminator (current) use of selective estrogen receptor modulators (SERMs), Z00.01 - Encounter for general adult medical examination with abnormal findings Complete Blood Count Auto Diff 06/01/24 D64.9 - Anemia, unspecified, E78.1 - Pure hyperglyceridemia, Z79.810 - termite exterminator (current) use of selective estrogen receptor modulators (SERMs), Z00.01 - Encounter for general adult medical examination with abnormal findings Vitamin D 25-OH Total 06/01/24 D64.9 - Anemia, unspecified, E78.1 - Pure hyperglyceridemia, Z79.810 - intermediate (current) use of selective estrogen receptor modulators (SERMs), Z00.01 - Encounter for general adult medical examination with abnormal findings
--- OUTSIDE RECORDS SUMMARY | 2024-06-01 14:25 | XMS_ITS ---
Author Name [facility] Organization Unknown Care Team Organization Name Specialty Phone Email Start Date End [facility]
== END 2024-06-01 13:38 | disposition home or self-care (01) ==
LOC: HO.HMCC 12:31
PROVIDERS: PCP Internal Medicine; Visit Provider Internal Medicine
DX: Z00.01 Encounter for general adult medical examination with abnormal findings (principal); Z85.3 Personal history of malignant neoplasm of breast; E78.1 Pure hyperglyceridemia; Z79.810 Long term (current) use of selective estrogen receptor modulators (SERMs); D64.9 Anemia, unspecified

== ENCOUNTER → 2024-06-01 12:31 | Outpatient (BNVA) | payer BC, SELFPAY | PROVIDERS: PCP Internal Medicine; Visit Provider Internal Medicine | DX: Z13.89 Encounter for screening for other disorder (principal) ==

== ENCOUNTER 2024-06-16 08:16 | Outpatient (REF) | payer BC, SELFPAY ==
[2024-06-16 09:59] LABS: MANUAL DIFF FLAG NO
[2024-06-16 10:11] LABS: Basophils Absolute Auto 0.1 X10*3/uL (0.0-0.2); Basophils Percent Auto 0.6 % (0-2); Eosinophils Absolute Auto 0.5 X10*3/uL (0.0-0.4); Eosinophils Percent Auto 4.5 % (0-4); Hematocrit 40.8 % (37.0-47.0); Hemoglobin 13.4 g/dl (12.0-16.0); Imm Gran Pct Auto 0.8 % (0.0-0.4); Lymphocytes Absolute Auto 4.2 X10*3/uL (1.2-4.9); Lymphocytes Percent Auto 35.1 % (20-40); Mean Corpuscular HGB Conc 32.8 g/dl (31.0-35.0); Mean Corpuscular Volume 85.4 fL (80.0-98.0); Mean Platelet Volume 9.9 fL (9.4-12.3); Monocytes Absolute Auto 0.9 X10*3/uL (0.1-1.2); Monocytes Percent Auto 7.5 % (2-11); Neutrophils Absolute Auto 6.2 x10*3/uL (2.0-8.3); Neutrophils Percent Auto 51.5 % (45-73); Platelet Count 296 X10*3/uL (160-400); Red Blood Count 4.78 X10*6/uL (4.20-5.50); Red Cell Distribution Width 12.2 % (11.0-16.0); White Blood Count 12.1 X10*3/uL (4.8-10.8)
[2024-06-16 10:47] LABS: Alanine Aminotransferase 30 U/L (0-31); Aspartate Amino Transferase 32 U/L (5-31); Cholesterol 268 mg/dL (<200); HDL Cholesterol 49 mg/dL (>40); Iron 45 mcg/dL (30-160); LDL Cholesterol Calculated 143 mg/dL (<100); Percent Iron Saturation 15 % (15-50); Total Iron Binding Capacity 307 mcg/dL (228-428); Triglycerides 384 mg/dL (<150); Unsaturated Iron Binding 262 ug/dL
[2024-06-16 11:08] LABS: Vitamin D 25-OH Total 58.3 ng/mL (>30)
== END 2024-06-16 08:17 | disposition home or self-care (01) ==
LOC: HO.HMGCLDS 08:16
PROVIDERS: PCP Internal Medicine; Visit Provider Internal Medicine
DX: Z00.01 Encounter for general adult medical examination with abnormal findings (principal); D64.9 Anemia, unspecified; E78.1 Pure hyperglyceridemia; Z79.810 Long term (current) use of selective estrogen receptor modulators (SERMs)
CPT/HCPCS: 36415; 80061; 82306; 83540; 84450; 84460; 85025

== ENCOUNTER 2024-09-14 10:14 | Outpatient (REF) | payer BC, SELFPAY ==
--- OUTSIDE RECORDS SUMMARY | 2024-09-14 11:17 | XMS_ITS ---
Author Name [facility] Organization Unknown Care Team Organization Name Specialty Phone Email [facility] Date [facility]
== END 2024-09-14 10:15 | disposition home or self-care (01) ==
LOC: HO.MAMMO 10:14
PROVIDERS: PCP Internal Medicine; Visit Provider Internal Medicine
DX: Z12.31 Encounter for screening mammogram for malignant neoplasm of breast (principal)
CPT/HCPCS: 77063; 77067

== ENCOUNTER → 2024-09-14 10:30 | Outpatient (BNV) | payer BC, SELFPAY | PROVIDERS: PCP Internal Medicine; Visit Provider Internal Medicine | DX: Z12.31 Encounter for screening mammogram for malignant neoplasm of breast (principal) | CPT/HCPCS: 77063; 77067 ==

== ENCOUNTER 2024-11-24 12:56 | Outpatient (AMB) | payer BC, SELFPAY ==
--- NOTE | 2024-11-24 12:59 | A.OFFVIS_ITS ---
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 Allergies latex Allergy (Intermediate, Verified 11/24/24 13:11) rash silver (From TEGADERM AG MESH) Allergy (Mild, Verified 11/24/24 13:11) rash amoxicillin Allergy (Unknown, Verified 11/24/24 13:11) hives Penicillins (PENICILLINS) Adverse Reaction (Intermediate, Verified 11/24/24 13:11) VOMITTING/HIVES bandage tape Allergy (Mild, Uncoded 11/24/24 13:11) rash Medication List - Last Reconciled 11/24/24 by Judy Youssef LPN acetaminophen (Tylenol Extra Strength) 1,000 mg PO Q6H PRN clobetasol 0.05% 1 appl topical DAILY 10 days copper (ParaGard T 380A) 380 device intrauterine DAILY multivitamin 1 tab PO DAILY tamoxifen 20 mg PO DAILY Is last menstrual period known: Yes Last menstrual period: 11/21/24 Post menopausal: No Patient : No HPI Comments Details: Patient is a premenopausal woman presenting for annual examination. 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 Currently is sexually active partner x 4yrs. She denies vaginal itching or irritation. STI screening offered; she declines. She tries to eat healthy and stays active with exercise. History of breast cancer, on Tamoxiphen for 10 years, currently has 4 more years to complete. Has follow up routinely with breast surgeon, oncology, and yearly MRI. Hemoglobin 12.8, 11/12/24. PFSH Medical History Dyshidrotic eczema Long-term current use of tamoxifen Cyst of right ovary Vitamin D deficiency Hypertriglyceridemia Hx of breast cancer Cervix abnormality Breast cancer Surgical History History of abdominoplasty History of breast reconstruction History of left total mastectomy Family History Mother Hypertension Father Hypertension Skin cancer Mother Cancer of kidney Maternal Aunt Breast cancer Paternal Aunt Breast cancer Social History Household Members: Family and Children Housing: House Are you a primary summer child caregiver to a significant other at home: No Do you presently have visiting nurse or other home services: No Alcohol intake: never Patient Tobacco Use Status: Never used Tobacco e-Cigarette/Vaping Use: Never Used service: No Current occupational status: employed Cognitive needs: No Hearing needs: No Vision needs: Yes Female Reproductive History Menstrual Age of Menarche: 10 Duration of menses: 3-5 days Date of last menstrual period: 11/21/24 control method: copper IUCD Total pregnancies: 0 Date of last pap smear: 10/08/24 History of abnormal pap smear: No History of STI: No Date of Mammogram: 09/14/24 History of abnormal mammogram: Yes Review of Systems Const All systems reviewed & are unremarkable except as noted in HPI and below Reports as per HPI Eyes Reports no additional complaints ENT Reports no additional complaints Card Reports no additional complaints Resp Reports no additional complaints GI Reports as per HPI and Reports no additional complaints Reports as per HPI Musc Reports no additional complaints Skin/Breast Reports as per HPI Neuro Reports no additional complaints Psych Reports no additional complaints Endo Reports no additional complaints Bridger/Lymph Reports no additional complaints Aller/Immun Reports no additional complaints Physical Exam Const General: cooperative, healthy appearing, no acute distress, well developed and alert Orientation/consciousness: patient oriented x3 HEENT Head: Yes normal to inspection Eyes General: appearance normal, both eyes and all related structures Neck Neck: Yes normal visual inspection Thyroid: Thyroid normal Chest Other: Status post surgical reconstructive scarring Chest palpation & inspection: normal inspection of the chest and other (no puckering, dimpling, peau de orange, retraction, discharge, masses) Breast/axilla inspection: normal inspection of the breasts Breast/axilla palpation: normal palpation of the breasts Resp Effort & Inspection: normal respiratory effort GI Inspection: Yes normal to inspection Palpation (GI): Soft to palpation Rectal Exam - Female: deferred General: Yes bladder normal to palpation External Female Exam: normal external appearance and normal appearance of the urethra Speculum Exam - Vagina: normal appearance of the vagina, normal palpation, normal vaginal discharge and vaginal bleeding Speculum Exam - Cervix: normal appearance of the cervix, normal palpation and O ther cervical findings present (IUD strings noted at the os) Bimanual exam- vagina & uterus: normal bimanual exam, normal palpation, uterine size normal, bladder normal to palpation, normal palpation and non-tender Bimanual Exam- Adnexa, other: no masses OB/external & speculum: vaginal bleeding Skin General skin exam: no rashes or lesions noted Rashes: no rashes Neuro General: patient oriented x3 Cognition (Neuro): normal cognition Extrem General: Yes normal to inspection Psych Attitude: cooperative Thought process: Normal thought process present Assessment & Plan Assessment & Plan (1) Encounter for gynecological examination (general) (routine) with abnormal findings: Code(s): Z01.411 - Encounter for gynecological examination (general) (routine) with abnor mal findings Plan Discussed: Current recommendations for pap smears per ASCCP guidelines. Breast awareness and periodic breast exams. Maintain a healthy lifestyle including a well balanced diet and routine exercise. Patient verbalizes understanding and agrees to the plan of care. She was given opportunity to ask questions and all questions were answered to the best of my ability. 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 This note is constructed using voice recognition software. While every effort has been made to ensure accuracy, logistics system engineer errors may have been included. Coding Level of Care Code Est Pt Prev Care 18-39y(36024) Diagnoses Encounter for gynecological examination (general) (routine) with abnormal findings Z01.411
[2024-11-24 13:02] VITALS: BP 110/70; BMI 28.7
== END 2024-11-24 13:51 | disposition home or self-care (01) ==
LOC: HO.HWS 12:56
PROVIDERS: PCP Internal Medicine; Visit Provider Advanced Practice Midwife
DX: Z01.411 Encounter for gynecological examination (general) (routine) with abnormal findings (principal)
CPT/HCPCS: 99395; 99459

== ENCOUNTER 2024-12-17 14:18 | Outpatient (AMB) | payer BC, SELFPAY ==
--- NOTE | 2024-12-17 14:29 | A.OFFVIS_ITS ---
Vital Signs 12/17/24 14:33 Height 5 ft 6 in Weight 181 lb 4 oz BMI 29.3 Intake Visit Reasons: yearly breast exam Intake Note: This patient presents for yearly breast exam. Pt c/o; reports no breast complaints at this time. 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 She had undergone left breast mastectomy with sentinel node biopsy in 2018? for invasive ductal cancer.? She had 1 lymph node with micrometastasis at that time.? She also had undergone breast reconstruction for that.? She had completed adjuvant treatment with Cytoxan, Adriamycin and Taxol. She continues do well.? She denies any palpable breast masses or nipple or skin changes.? She is still on antiestrogen treatment with tamoxifen. She denies any health concerns at this time. She had an MRI last March 2024 and a mammogram last August 2024. Both of these did not suggest any disease on either breasts. [facility] Medical History Dyshidrotic eczema Long-term current use of tamoxifen Cyst of right ovary Vitamin D deficiency Hypertriglyceridemia Hx of breast cancer Cervix abnormality Breast cancer Surgical History History of abdominoplasty History of breast reconstruction History of left total mastectomy Family History Mother Hypertension Father Hypertension Skin cancer Mother Cancer of kidney Maternal Aunt Breast cancer Paternal Aunt Breast cancer Social History Household Members: Family and Children Housing: House Are you a primary patient care manager to a significant other at home: No Do you presently have visiting nurse or other home services: No Alcohol intake: never Patient Tobacco Use Status: Never used Tobacco e-Cigarette/Vaping Use: Never Used service: No Current occupational status: employed Cognitive needs: No Hearing needs: No Vision needs: Yes Female Reproductive History Menstrual Age of Menarche: 10 Review of Systems Const Denies chills and Denies fever(s) Card Denies chest pain, Denies dyspnea and Denies dyspnea on exertion Resp Denies cough, Denies dyspnea and Denies dyspnea on exertion GI Denies hematochezia and Denies change in bowel habits Denies hematuria Musc Denies back pain and Denies limited range of motion Neuro Denies focal weakness and Denies convulsions Psych Denies depression and Denies mood swings Physical Exam Vital Signs: BMI result Body Mass Index 29.3 Const General: comfortable and no acute distress Orientation/consciousness: patient oriented x3 Neck Neck: Yes no lymphadenopathy Chest Other: No palpable breast masses, no axillary lymphadenopathy , no nipple or skin changes, Resp Auscultation: clear to auscultation bilaterally Cardio Rhythm: regular rhythm GI Palpation (GI): Soft to palpation, nontender and no guarding Neuro General: patient oriented x3 Assessment & Plan Assessment & Plan (1) Hx of breast cancer: Code(s): Z85.3 - Personal history of malignant neoplasm of breast Category: Medical Plan: Current physical exam does not suggest any palpable breast mass. She does not have any palpable axillary lymphadenopathy I have reviewed her MRI from March 2024 as well her mammogram from August of this year and both of these do not suggest any recurrent disease I reminded her to continue with the yearly eyes and mammograms I will see her again in the office after 1 year. She is also to continue to follow up with Dr. Byrd. She remains on anti hormonal treatment Coding Level of Care Code Est Pt Level 3 (12345) Complex EM visit Add On G2211 Diagnoses Hx of breast cancer Z85.3
[2024-12-17 14:33] VITALS: BMI 29.3
== END 2024-12-17 14:48 | disposition home or self-care (01) ==
LOC: HO.HGS 14:19
PROVIDERS: PCP Internal Medicine; Visit Provider Surgery
DX: Z85.3 Personal history of malignant neoplasm of breast (principal)
CPT/HCPCS: 99213